=== PATIENT | male | born 1965 | race African-American/Black ===

== ENCOUNTER 2023-03-31 14:43 | Outpatient (AMB) | payer BC, SELFPAY ==
--- NOTE | 2023-03-31 14:51 | HO.NEPHOV ---
HPI HPI Comments History of Present Illness Details Middle-aged man with a longstanding history of resistant hypertension. He has been on multiple medications. At present blood pressure seems well controlled. He has elevated serum creatinine in the range of 1.4-1.6 mg/dL. 24 hour urine collection done in August 2021 revealed a creatinine clearance of 75 mL/minutes with a serum creatinine of 1.5 mg/dL. He has increased muscle mass which could explain some degree of elevation serum creatinine. Nevertheless he does have mild CKD. [facility] Surgical History No pertinent past surgical history Family History Mother Hypertension Social History Household Members Other:: Sister Housing: House Alcohol intake: never Patient Tobacco Use Status: Never used Tobacco Use of substances other than those prescribed or required for medical reasons: No Vital Signs 03/31/23 14:52 Height 5 ft 9 in Weight 217 lb 2 oz BMI 32.1 BP 126/84 Blood Pressure Location Lt brachial Position Sitting Pulse 71 Pulse Source Pulse Oximeter Pulse Oximetry (%) 97 Oxygen Delivery Method Room Air Physical Exam Vital Signs: Last Vital Signs Pulse 71 03/31/23 14:52 BP 126/84 03/31/23 14:52 Pulse Ox 97 03/31/23 14:52 Oxygen Delivery Method Room Air 03/31/23 14:52 BMI result Body Mass Index 32.1 Const General: comfortable; No acute distress Orientation/consciousness: patient oriented x3 Eyes General: appearance normal, both eyes and all related structures Visual Nicholas: normal visual nicholas by confrontation Neck Neck: Yes supple and Yes no JVD Resp Effort & Inspection: normal respiratory effort and respiratory effort not decreased Auscultation: rhonchi Cardio Palpation: no palpable S3 and no palpable S4 Heart sounds: no rubs GI Inspection: Yes normal to inspection Palpation (GI): Soft to palpation Percussion: Yes normal to percussion Auscultation: normal bowel sounds General: Yes no CVA tenderness Back/Spine/Pelvis Back: no CVA tenderness Skin General skin exam: no petechiae and no purpura Neuro General: patient oriented x3 and no focal motor deficits Extrem General: No clubbing and No edema Assessment & Plan Assessment & Plan (1) HTN (hypertension): Code(s): I10 - Essential (primary) hypertension Plan Middle-aged man with resistant hypertension. Blood pressure is well controlled. We discussed low-salt diet and weight loss. Increase p.o. fluid intake. Continue monitor blood pressure periodically. No change in antihypertensive regimen today. Elevated serum creatinine. This is due to the combination of increased muscle mass as well as mild CKD. 24 hour urine collection revealed a creatinine clearance of 75 mL/minute back in August 2021. At that time serum creatinine was 1.6 mg/dL. Continue to monitor renal function closely Avoid nephrotoxic agents including NSAIDs. Orders: Orders Blood Urea Nitrogen Today I10 - Essential (primary) hypertension Calcium Today I10 - Essential (primary) hypertension Electrolytes Today I10 - Essential (primary) hypertension Creatinine Today I10 - Essential (primary) hypertension Coding Level of Care Code Est Pt Level 3 (55698) Diagnoses HTN (hypertension) I10 Results Reviewed Results Reviewed: Labs from August 2021 was reviewed reviewed serum creatinine 1.55 electrolytes normal Nephrology Results: No Data to Display
[2023-03-31 14:52] VITALS: BP 126/84; PULSE 71; O2SAT 97; BMI 32.1
== END 2023-03-31 15:19 | disposition home or self-care (01) ==
PROVIDERS: PCP Internal Medicine; Visit Provider Internal Medicine Hypertension Specialist
DX: I10 Essential (primary) hypertension (principal)
CPT/HCPCS: 99213

== ENCOUNTER → 2023-03-31 14:43 | Outpatient (BNVA) | payer BC, SELFPAY | PROVIDERS: PCP Internal Medicine; Visit Provider Internal Medicine Hypertension Specialist ==

== ENCOUNTER 2023-10-06 15:08 | Outpatient (AMB) | payer BC, SELFPAY ==
[2023-10-06 15:04] VITALS: BP 114/78; PULSE 95; O2SAT 98; BMI 31.6
--- NOTE | 2023-10-06 15:04 | HO.NEPHOV ---
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 He has been on multiple medications. At present blood pressure seems well controlled. He has elevated serum creatinine in the range of 1.4-1.6 mg/dL. 24 hour urine collection done in August 2021 revealed a creatinine clearance of 75 mL/minutes with a serum creatinine of 1.5 mg/dL. He has increased muscle mass which could explain some degree of elevation serum creatinine. Nevertheless he does have mild CKD. 10/06/23 Recently had elevated PSA underwent MRI and prostate biopsy Being followed closely by Urology [facility] Surgical History No pertinent past surgical history Family History Mother Hypertension Social History Household Members Other:: Sister Housing: House Alcohol intake: never Patient Tobacco Use Status: Never used Tobacco Physical Exam Vital Signs: Last Vital Signs Pulse 95 10/06/23 15:04 BP 114/78 10/06/23 15:04 Pulse Ox 98 10/06/23 15:04 Oxygen Delivery Method Room Air 10/06/23 15:04 BMI result Body Mass Index 31.6 Const General: comfortable; No acute distress Orientation/consciousness: patient oriented x3 Eyes General: appearance normal, both eyes and all related structures Visual Robertson: normal visual robertson by confrontation Neck Neck: Yes supple and Yes no JVD Resp Effort & Inspection: normal respiratory effort and respiratory effort not decreased Auscultation: rhonchi Cardio Palpation: no palpable S3 and no palpable S4 Heart sounds: no rubs GI Inspection: Yes normal to inspection Palpation (GI): Soft to palpation Percussion: Yes normal to percussion Auscultation: normal bowel sounds General: Yes no CVA tenderness Back/Spine/Pelvis Back: no CVA tenderness Skin General skin exam: no petechiae and no purpura Neuro General: patient oriented x3 and no focal motor deficits Extrem General: No clubbing and No edema Results Reviewed Nephrology Results: No Data to Display Assessment & Plan Assessment & Plan (1) HTN (hypertension): Code(s): I10 - Essential (primary) hypertension Category: Medical Plan Middle-aged man with resistant hypertension. Blood pressure is well controlled. We discussed low-salt diet and weight loss. Increase p.o. fluid intake. Continue monitor blood pressure periodically. No change in antihypertensive regimen today. Elevated serum creatinine. This is due to the combination of increased muscle mass as well as mild CKD. 24 hour urine collection revealed a creatinine clearance of 75 mL/minute back in August 2021. At that time serum creatinine was 1.6 mg/dL. Continue to monitor renal function closely Check 24 hr urine for Cr CL in Feb 2024 Avoid nephrotoxic agents including NSAIDs. Orders: Orders Comprehensive Met. Panel 5 Months I10 - Essential (primary) hypertension Complete Blood Count no Diff 5 Months I10 - Essential (primary) hypertension Creatinine, 24 Hr Group 5 Months I10 - Essential (primary) hypertension Creatinine Clearance Urine 24U 5 Months I10 - Essential (primary) hypertension Medications: New labetalol 200 mg PO BID 180 tabs 3RF Coding Level of Care Code Est Pt Level 4 (28053) Diagnoses HTN (hypertension) I10
== END 2023-10-06 15:28 | disposition home or self-care (01) ==
PROVIDERS: PCP Internal Medicine; Visit Provider Internal Medicine Hypertension Specialist
DX: I10 Essential (primary) hypertension (principal)
CPT/HCPCS: 99214

== ENCOUNTER → 2023-10-06 15:08 | Outpatient (BNVA) | payer BC, SELFPAY | PROVIDERS: PCP Internal Medicine; Visit Provider Internal Medicine Hypertension Specialist ==

== ENCOUNTER 2024-03-08 14:09 | Outpatient (AMB) | payer BC, SELFPAY ==
--- NOTE | 2024-03-08 14:10 | HO.NEPHOV ---
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 He has been on multiple medications. At present blood pressure seems well controlled. He has elevated serum creatinine in the range of 1.4-1.6 mg/dL. 24 hour urine collection done in August 2021 revealed a creatinine clearance of 75 mL/minutes with a serum creatinine of 1.5 mg/dL. He has increased muscle mass which could explain some degree of elevation serum creatinine. Nevertheless he does have mild CKD. 10/06/23 Recently had elevated PSA underwent MRI and prostate biopsy Being followed closely by Urology [facility] Surgical History No pertinent past surgical history Family History Mother Hypertension Social History Household Members Other:: Sister Housing: House Alcohol intake: never Patient Tobacco Use Status: Never used Tobacco Physical Exam Vital Signs: Last Vital Signs Pulse 82 03/08/24 14:11 BP 122/78 03/08/24 14:11 Pulse Ox 98 03/08/24 14:11 Oxygen Delivery Method Room Air 03/08/24 14:11 Const General: comfortable; No acute distress Orientation/consciousness: patient oriented x3 Eyes General: appearance normal, both eyes and all related structures Visual Robertson: normal visual robertson by confrontation Neck Neck: Yes supple and Yes no JVD Resp Effort & Inspection: normal respiratory effort and respiratory effort not decreased Auscultation: rhonchi Cardio Palpation: no palpable S3 and no palpable S4 Heart sounds: no rubs GI Inspection: Yes normal to inspection Palpation (GI): Soft to palpation Percussion: Yes normal to percussion Auscultation: normal bowel sounds General: Yes no CVA tenderness Back/Spine/Pelvis Back: no CVA tenderness Skin General skin exam: no petechiae and no purpura Neuro General: patient oriented x3 and no focal motor deficits Extrem General: No clubbing and No edema Results Reviewed Nephrology Results: No Data to Display Assessment & Plan Assessment & Plan (1) HTN (hypertension): Code(s): I10 - Essential (primary) hypertension Category: Medical Plan Middle-aged man with resistant hypertension. Blood pressure is well controlled. We discussed low-salt diet and weight loss. Increase p.o. fluid intake. Continue monitor blood pressure periodically. No change in antihypertensive regimen today. Elevated serum creatinine. This is due to the combination of increased muscle mass as well as mild CKD. 24 hour urine collection revealed a creatinine clearance of 75 mL/minute back in August 2021. At that time serum creatinine was 1.6 mg/dL. Continue to monitor renal function closely Repeat 24 hr urine for Cr CL is pending Avoid nephrotoxic agents including NSAIDs. Orders: Orders Basic Metabolic Panel 6 Months I10 - Essential (primary) hypertension Coding Level of Care Code Est Pt Level 4 (98133) Diagnoses HTN (hypertension) I10
[2024-03-08 14:11] VITALS: BP 122/78; PULSE 82; O2SAT 98
== END 2024-03-08 14:35 | disposition home or self-care (01) ==
PROVIDERS: PCP Internal Medicine; Visit Provider Internal Medicine Hypertension Specialist
DX: I1A.0 Resistant hypertension (principal)
CPT/HCPCS: 99214

== ENCOUNTER 2024-04-20 11:23 | Outpatient (AMB) | payer BC, SELFPAY ==
--- NOTE | 2024-04-20 11:20 | HO.NEPHOV ---
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 He has been on multiple medications. At present blood pressure seems well controlled. He has elevated serum creatinine in the range of 1.4-1.6 mg/dL. 24 hour urine collection done in August 2021 revealed a creatinine clearance of 75 mL/minutes with a serum creatinine of 1.5 mg/dL. He has increased muscle mass which could explain some degree of elevation serum creatinine. Nevertheless he does have mild CKD. 10/06/23 Recently had elevated PSA underwent MRI and prostate biopsy Being followed closely by Urology [facility] Surgical History No pertinent past surgical history Family History Mother Hypertension Social History Household Members Other:: Sister Housing: House Alcohol intake: never Patient Tobacco Use Status: Never used Tobacco Physical Exam Vital Signs: BMI result Body Mass Index 31.3 Comfortable Neck supple no JVD. Lungs entry equal no rales. Heart S1-S2 heard no gallop or rub. Abdomen soft nontender. Neuro alert awake oriented. No asterixis. Extremities no edema. Telehealth Telehealth Telehealth Platform: Telephone Location of provider rendering services: practice address Location of patient: address on file Patient informed of any privacy concerns related to visit: Yes Results Reviewed Results Reviewed: Labs from August 2021 was reviewed reviewed serum creatinine 1.55 electrolytes normal Nephrology Results: No Data to Display Assessment & Plan Assessment & Plan (1) HTN (hypertension): Code(s): I10 - Essential (primary) hypertension Category: Medical Plan Middle-aged man with resistant hypertension. Blood pressure is well controlled. We discussed low-salt diet and weight loss. Increase p.o. fluid intake. Continue monitor blood pressure periodically. No change in antihypertensive regimen today. Elevated serum creatinine. This is due to the combination of increased muscle mass as well as mild CKD. 24 hour urine collection revealed a creatinine clearance of 75 mL/minute back in August 2021. At that time serum creatinine was 1.6 mg/dL. Continue to monitor renal function closely Avoid nephrotoxic agents including NSAIDs. 04/20/2024. Discussed results of 24 urine collection. The serum creatinine was 1.65. Creatinine clearance was reported as 53 mL/minute in fact the corrected creatinine clearance is 65 mL/minute. Coding Level of Care Code Tele Est Pt Level 2 (07015) Diagnoses HTN (hypertension) I10
[2024-04-20 11:21] VITALS: BMI 31.3
--- OUTSIDE RECORDS SUMMARY | 2024-04-20 11:24 | XMS_ITS ---
[facility] Name [facility] Organization Unknown History of Medication Use Medication Directions Dispensed Refills Start Date End Date Stat atorvastatin (LIPITOR) 20 MG tablet Take 1 tablet (20 mg total) by mouth daily. 03/09/2024 04/25/9999 active sodium chloride 0.9% (NS) infusion 125 mL/hr, Intravenous, Continuous, Starting on Wed12/29/23 at 1030, Pre-Procedure (GI) 01/02/2024 active levoFLOXacin (LEVAQUIN) 500 MG tablet Take 1 tablet (500 mg total) by mouth daily. 08/22/2023 active phenazopyridine (PYRIDIUM) 100 MG tablet Take 1 tablet (100 mg total) by mouth 3 (three) times a day in the morning, mid-day and early evening. 08/20/2023 active amLODIPine (NORVASC) 10 MG tablet 1 tablet (10 mg total). 1/2 tabet qhs 03/04/2022 active labetalol (NORMODYNE) 200 MG tablet Take 1 tablet (200 mg total) by mouth 2 (two) times a day. 03/04/2022 active atorvastatin (LIPITOR) 10 MG tablet Take 1 tablet (10 mg total) by mouth daily. 03/04/2022 active spironolactone-hydroch lorothiazide (ALDACTAZIDE) 25-25 MG per tablet Take 1 tablet by mouth daily. 03/04/2022 active valsartan (DIOVAN) 160 MG tablet Take 160 mg by mouth daily. 03/04/2022 active Problems Problem Status Onset Date Problem Type Date of Resoluti on Source FH: colon polyps active 2023-10-21 ProblemAct [facility] Hypokalemia active 2020-06-13 ProblemAct [facility] Other and unspecified hyperlipidemia active 2013-07-14 ProblemAct [facility] Familial multiple lipoprotein-type hyperlipidemia active 2013-07-14 ProblemAct [facility] Benign essential hypertension active 2013-07-14 ProblemAct [facility] FHx: colon cancer active 2023-10-21 ProblemAct [facility] Myopia active 2013-07-14 Problem[facility] Stage 3a chronic kidney disease active 2023-06-18 ProblemAct [facility] 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 ProblemAct [facility] Iron deficiency anemia active 2023-10-21 ProblemAct [facility] Chronic kidney disease, stage II (mild) active 2013-07-14 ProblemAct [facility] Prostate cancer active 2023-08-31 ProblemAct [facility] Immunizations Vaccine Date Source Lot Number Status Influenza, Unspecified 02/11/2021 [facility] [id number] co mpleted Influenza, Quadrivalent (FLU ARIX, AFLURIA, FLULAVAL, FLUZONE) Preservative Free IM 02/12/2022 [facility] [id number] completed Influenza, Quadrivalent (FLU CELVAX) MDCK, Preservative Free IM 02/21/2023 [facility] [id number] completed Tdap 12/01/2022 [facility] [id number] completed Zoster Vaccine Recombinant (Shingrix) 12/18/2022 [facility] [id number] completed Tdap 05/11/2011 [facility] [id number] completed Zoster Vaccine Recombinant (Shingrix) 09/15/2022 [facility] [id number] completed Influenza (AFLURIA/FLUZONE) Inactivated/Split Quadrivalent with Preservative IM 04/27/2011 [facility] [id number] completed Influenza, Quadrivalent (FLU CELVAX) MDCK, Preservative Free IM 02/11/2021 [facility] [id number] completed Influenza (AFLURIA/FLUZONE) Inactivated/Split Quadrivalent with Preservative IM 02/21/2009 [facility] [id number] completed Influenza, Unspecified 01/28/2020 [facility] [id number] completed Influenza, Unspecified 02/09/2019 [facility] co mpleted Influenza Inactivated/Split Preservative Free IM 03/09/2012 [facility] [id number] completed Influenza Inactivated/Split Preservative Free IM 02/09/2019 [facility] completed Influenza (AFLURIA/FLUZONE) Inactivated/Split Quadrivalent with Preservative IM 01/31/2010 [facility] [id number] completed Influenza, Quadrivalent (FLU CELVAX) MDCK, Preservative Free IM 01/28/2020 [facility] [id number] completed Influenza Inactivated/Split Preservative Free IM 02/03/2016 [facility] [id number] completed
== END 2024-04-20 13:18 | disposition home or self-care (01) ==
PROVIDERS: PCP Internal Medicine; Visit Provider Internal Medicine Hypertension Specialist
DX: I1A.0 Resistant hypertension (principal)
CPT/HCPCS: 99441

== ENCOUNTER 2024-09-06 16:13 | Outpatient (AMB) | payer BC, SELFPAY ==
--- NOTE | 2024-09-06 16:16 | HO.NEPHOV_ITS ---
Vital Signs 09/06/24 16:17 Height 5 ft 9 in Weight 211 lb BMI 31.2 BP 130/78 Blood Pressure Location Rt brachial Position Sitting Pulse 100 Pulse Source Pulse Oximeter Pulse Oximetry (%) 97 Oxygen Delivery Method Room Air Intake Visit Reasons: 6 Month FU HTN/ Conf Pipeline Dispatch Operator Required: No Accompanied by: Self / Same As Patient Allergies No Known Allergies Allergy (Verified 09/06/24 16:19) Medication List - Last Reconciled 09/06/24 by Yuan Limon MD amlodipine 10 mg PO DAILY labetalol 200 mg PO BID spironolacton-hydrochlorothiaz 25-25 mg 1 tab PO DAILY HPI Comments Details: Middle-aged man with a longstanding history of resistant hypertension. He has been on multiple medications. At present blood pressure seems well controlled. He has elevated serum creatinine in the range of 1.4-1.6 mg/dL. 24 hour urine collection done in August 2021 revealed a creatinine clearance of 75 mL/minutes with a serum creatinine of 1.5 mg/dL. He has increased muscle mass which could explain some degree of elevation serum creatinine. Nevertheless he does have mild CKD. 10/06/23 ;Recently had elevated PSA ;underwent MRI and prostate biopsy ;Being followed closely by Urology 09/06/24 59-year-old male presenting for a wellness visit and review of medications. He is currently on a stable regimen of amlodipine, libidol, and alberto nolactone/aldactazide, with no medication changes in the past six months. The patient denies any new symptoms including respiratory issues, leg swelling, or urination problems. A recent prostate MRI and biopsy in June showed no evidence of cancer. The patient monitors his blood pressure at home, with values consistently in the 120s/75-80 mmHg, and is asymptomatic concerning hypotension. Blood tests were conducted recently, but results have been delayed in reaching our office from [facility] Surgical History No pertinent past surgical history Family History Mother Hypertension Social History Household Members Other:: Sister Housing: House Alcohol intake: never Patient Tobacco Use Status: Never used Tobacco Physical Exam Vital Signs: Last Vital Signs Pulse 100 09/06/24 16:17 BP 130/78 09/06/24 16:17 Pulse Ox 97 09/06/24 16:17 Oxygen Delivery Method Room Air 09/06/24 16:17 BMI result Body Mass Index 31.2 Comfortable Neck supple no JVD. Lungs entry equal no rales. Heart S1-S2 heard no gallop or rub. Abdomen soft nontender. Neuro alert awake oriented. No asterixis. Extremities no edema. Results Reviewed Results Reviewed: 09/02/24 Cr 1.46 eGFR 54 ml/mt Nephrology Results: No Data to Display Assessment & Plan Assessment & Plan (1) HTN (hypertension): Code(s): I10 - Essential (primary) hypertension Category: Medical Plan Middle-aged man with resistant hypertension. Blood pressure is well controlled. We discussed low-salt diet and weight loss. Continue to increase p.o. fluid intake. Continue monitor blood pressure periodically. No change in antihypertensive regimen today. Elevated serum creatinine at baseline. This is due to the combination of increased muscle mass as well as mild CKD. 24 hour urine collection revealed a creatinine clearance of 75 mL/minute back in August 2021. At that time serum creatinine was 1.6 mg/dL. Continue to monitor renal function closely Avoid nephrotoxic agents including NSAIDs. Repeated 24 urine collection. The serum creatinine was 1.65. Creatinine clearance was reported as 53 mL/minute in fact the corrected creatinine clearance is 65 mL/minute. Recent Cr is 1.46 - at baseline No changes were made today Orders: Orders Basic Metabolic Panel 6 Months I10 - Essential (primary) hypertension Total Protein Urine Random Today I10 - Essential (primary) hypertension UA and rflx microscopic Today I10 - Essential (primary) hypertension Creatinine Urine Today I10 - Essential (primary) hypertension Coding Level of Care Code Est Pt Level 4 (96306) Diagnoses HTN (hypertension) I10
--- OUTSIDE RECORDS SUMMARY | 2024-09-06 16:16 | XMS_ITS | Encounter Summary ---
Author Organization [facility] Address [address] [place] [id number] Care Team Providers Care Trading Analyst Name Role Phone Dodie Rodriguez MD Primary Care Provider [phone] Dodie Rodriguez MD Unavailable [phone] Encounter Details Date Type Department Care Team (Late st Contact Info) Description 09/25/2022 Scanned Document [facility] Ophthalmology, Scan Social History Tobacco Use Types Packs/Day Years Used Date Smoking Tobacco: Never Smokeless Tobacco: Never Alcohol Use Standard Drinks/Week Comments No 0 (1 standard drink = 0.6 oz pur e alcohol) PHQ-2 Answer Date Recorded PHQ-2 Total Score 0 08/08/2021 Sex and Gender Information Value Date Recorded Sex Assigned at Male 08/16/2023 9:58 AM EDT Legal Sex Male 3:18 PM EDT Gender Identity Male 09/08/2022 11:01 PM EDT Sexual Orientation Heterosexual (straight) 08/15 9:58 AM EDT COVID-19 Exposure Response Date Recorded In the last 10 days, have yo u been in contact with someone who was confirmed or suspected to have Coronavirus/COVID-19? No / Unsure 09/15/2022 11:07 AM EDT documented as of this encounter Plan of Treatment Upcoming Encounters Date Type Department Care Team (Late st Contact Info) Description 12/05/2024 9:00 AM EDT Office Visit [address] [place] [phone] Dodie Rodriguez MD [address] [place] [address] 02/09/2025 8:30 AM EDT Office Visit [id number] [address] [facility] [address] [place] [phone] Keyshawn Wetzel MD [address] [place] [id number] documented as of this encounter Visit Diagnoses Not on filedocumented in this encounter Care Teams Trading Analyst Relationship Specialty Start Date End Date Dodie Rodriguez MD [address] [place] [address] PCP - General Internal Medicine 03/16/17 Dodie Rodriguez MD [address] [place] [address] PCP - [place] Commercial Attributed 11/25/19 04/25/23 documented as of this encounter
--- OUTSIDE RECORDS SUMMARY | 2024-09-06 16:16 | XMS_ITS | Encounter Summary ---
Author Organization [facility] Address [address] [place] [address] Care Team Providers Care Manager Balance Name Role Phone Dodie Rodriguez MD Primary Care Provider [phone] Dodie Rodriguez MD Unavailable [phone] Encounter Details Date Type Department Care Team (Late st Contact Info) Description 09/17/2021 Scanned Document [facility] Dodie Rodriguez MD [address] [facility] [address] [place], [place] [phone] Social History Tobacco Use Types Packs/Day Years [...] Orientation Heterosexual (straight) 08/15 9:58 AM EDT documented as of this encounter Plan of Treatment Upcoming Encounters Date Type Department Care Team (Late st Contact Info) Description 12/05/2024 9:00 AM EDT Office Visit [facility] [address] [facility] [address] [place] [phone] Dodie Rodriguez MD [address] [place] [address] 02/09/2025 8:30 AM EDT Office Visit [id number] [address] [facility] [address] [place] [phone] Keyshawn Wetzel MD [address] [place] [phone] documented as of this encounter Visit Diagnoses Not on filedocumented in this encounter Care Teams Manager Balance Relationship Specialty Start Date End Date Dodie Rodriguez MD [address] [place] [address] PCP - General Internal Medicine 03/16/17 Dodie Rodriguez MD [address] [place] [address] PCP - [place] Commercial Attributed 11/25/19 04/25/23 documented as of this encounter
--- OUTSIDE RECORDS SUMMARY | 2024-09-06 16:16 | XMS_ITS | Encounter Summary ---
Author Organization [facility] Address [address] [place] [id number] Care Team Providers Care Safety Intern Name Role Phone Mike, Ha Pham MD Primary Care Provider [phone] Dodie Rodriguez MD Primary Care Provider + [phone] Dodie Rodriguez MD Unavailable [phone] Encounter Details Date Type Department Care Team (Late st Contact Info) Description 08/06/2015 Scanned Document [address] [phone] Provider, Generic Social History Tobacco Use Types Packs/Day Years Used Date Smoking Tobacco: Never Smokeless Tobacco: Never Alcohol Use Standard Drinks/Week Comments No 0 (1 standard drink = 0.6 oz pur e alcohol) Sex and Gender Information Value Date Recorded Sex Assigned at Male 08/16/2023 9:58 AM EDT Legal Sex Male 3:18 PM EDT Gender Identity Male 09/08/2022 11:01 PM EDT Sexual Orientation Heterosexual (straight) 08/15 9:58 AM EDT documented as of this encounter Plan of Treatment Upcoming Encounters Date Type Department Care Team (Late st Contact Info) Description 12/05/2024 9:00 AM EDT Office Visit [address] [phone] Dodie Rodriguez MD [address] [place] [address] [place] [address] 02/09/2025 8:30 AM EDT Office Visit [id number] [address] [facility] [address] [place] [phone] Keyshawn Wetzel MD [address] [address] documented as of this encounter Procedures Procedure Name Priority Date/Time Associated Diagnosis Comments BLOOD PRESSURE MONITOR HX 08/27/2015 BLOOD PRESSURE MONITOR HX 08/06/2015 documented in this encounter Results * BLOOD PRESSURE MONITOR HX (08/27/2015) Narrative 08/27/2015 Ordered by an unspecified provider. us Generic Provider HX AMB PROCEDURES Edited Result - Final * BLOOD PRESSURE MONITOR HX (08/06/2015) Narrative 08/06/2015 Ordered by an unspecified provider. us Generic Provider HX AMB PROCEDURES Edited Result - Final documented in this encounter Visit Diagnoses Not on filedocumented in this encounter Care Teams Safety Intern Relationship Specialty Start Date End Date Ha Mckeon MD PCP - General Internal Medicine 01/03/15 03/15/17 Dodie Rodriguez MD [address] [place] [address] PCP - General Internal Medicine 03/16/17 Dodie Rodriguez MD [address] [place] [address] PCP - [place] Commercial Attributed 11/25/19 04/25/23 documented as of this encounter
--- OUTSIDE RECORDS SUMMARY | 2024-09-06 16:16 | XMS_ITS | Encounter Summary ---
Author Organization [facility] Address [address] [place] [address] Phone Care Team Providers Care Costume Director Name Role Phone Dodie Rodriguez MD Primary Care Provider [phone] Encounter Details Date Type Department Care Team (Late st Contact Info) Description 08/18/2021 Telephone [facility] [address] [place] [address] Yuan Limon MD Social History Tobacco Use Types Packs/Day Years Used Date Smoking Tobacco: Never Smokeless Tobacco: Never Alcohol Use Standard Drinks/Week Comments Yes 0 (1 standard drink = 0.6 oz pure alcohol) Alcoholic Drinks/day: Occasional social drink Sex and Gender Information Value Date Recorded Sex Assigned at Not on file Legal Sex Male 4:59 PM EST Gender Identity Not on file Sexual Orientation Not on file documented as of this encounter Miscellaneous Notes * Telephone Encounter - Susan Gr MA - 08/20/2021 3:07 PM EDT Sent lab slip for Renal panel. * Telephone Encounter - Sol Moon - 08/18/2021 4:03 PM EDT Pt called, he needs a new lab order for his appt on 09/02/[address] Limon. Please mail Thank you documented in this encounter Plan of Treatment Not on file documented as of this encounter Visit Diagnoses Not on filedocumented in this encounter Care Teams Costume Director Relationship Specialty Start Date End Date Dodie Rodriguez MD [address] [place] [phone] PCP - General Internal Medicine 09/02/21 documented as of this encounter
--- OUTSIDE RECORDS SUMMARY | 2024-09-06 16:16 | XMS_ITS | Encounter Summary ---
Author Organization [facility] Address [address] [place] [address] Care Team Providers Care Antisubmarine Weapons Officer Name Role Phone Dodie Rodriguez MD Primary Care Provider [phone] Dodie Rodriguez MD Unavailable [phone] Encounter Details Date Type Department Care Team (Late st Contact Info) Description 02/02/2023 Telephone [facility] [address] [place] [phone] Keyshawn Wetzel MD [address] [place] [address] Social History Tobacco Use Types Packs/Day Years [...] AM EDT documented as of this encounter Miscellaneous Notes * Telephone Encounter - Muriel Rian - 02/03/2023 8:46 AM EDT All set documented in this encounter Plan of Treatment Upcoming Encounters Date Type Department Care Team (Late st Contact Info) Description 12/05/2024 9:00 AM EDT Office Visit [facility] [place] [address] [place] [address] Dodie Rodriguez MD [address] [place] [address] 02/09/2025 8:30 AM EDT Office Visit [facility] [id number] 7 [facility] [address] [place] [phone] Keyshawn Wetzel MD [address] [place] [phone] documented as of this encounter Visit Diagnoses Not on filedocumented in this encounter Care Teams Antisubmarine Weapons Officer Relationship Specialty Start Date End Date Dodie Rodriguez MD [address] [facility] [address] [place] [address] PCP - General Internal Medicine 03/16/17 Dodie Rodriguez MD [address] [facility] [address] [place] [address] PCP - [place] [employer] Attributed 11/25/19 04/25/23 documented as of this encounter
--- OUTSIDE RECORDS SUMMARY | 2024-09-06 16:16 | XMS_ITS | Encounter Summary ---
Author Organization [facility] Address [address] [place] [address] Care Team Providers Care Insulation Cutter Name Role Phone Dodie Rodriguez MD Primary Care Provider [phone] Dodie Rodriguez MD Unavailable [phone] Encounter Details Date Type Department Care Team (Late st Contact Info) Description 08/28/[address] [address] Dodie Rodriguez MD 100 [facility] [address] [place] [address] Social History Tobacco Use Types Packs/Day Years [...] encounter Miscellaneous Notes * Telephone Encounter - Adelaida Dasilva RN - 08/28/2022 11:27 AM EDT Patient will call back when he has the information in front of him on Wednesday * Telephone Encounter - Katie Soler - 08/28/2022 11:03 AM EDT Pt is asking for a call back about the shingles vaccine. He has questions about it before making anappt. He stated the best day to call is Wednesday or . documented in this encounter Plan of Treatment Upcoming Encounters Date Type Department Care Team (Late st Contact Info) Description 12/05/2024 9:00 AM EDT Office Visit [facility] [address] [address] Dodie Rodriguez MD [address] [place] [address] 02/09/2025 8:30 AM EDT Office Visit [facility] [address] [place] [phone] Keyshawn Wetzel MD [address] [place] [address] documented as of this encounter Visit Diagnoses Not on filedocumented in this encounter Care Teams Insulation Cutter Relationship Specialty Start Date End Date Dodie Rodriguez MD [address] [place] [address] PCP - General Internal Medicine 03/16/17 Dodie Rodriguez MD [address] [place] [address] PCP - [place] [employer] Attributed 11/25/19 04/25/23 documented as of this encounter
--- OUTSIDE RECORDS SUMMARY | 2024-09-06 16:16 | XMS_ITS | Encounter Summary ---
Author Organization [facility] Address [address] [place] [address] Care Team Providers Care Candy Bar Attendant Name Role Phone Dodie Rodriguez MD Primary Care Provider [phone] Encounter Details Date Type Department Care Team (Late st Contact Info) Description 10/26/2023 Scanned Document [facility] [address] [place] [address] Ophthalmology, Scan Social History Tobacco Use Types [...] Description 12/05/2024 9:00 AM EDT Office Visit [address] [place] [phone] Dodie Rodriguez MD [address] [place] [address] [address] [place] [address] 02/09/2025 8:30 AM EDT Office Visit [facility] [id number] 7 [facility] [address] [place] [address] Keyshawn Wetzel MD [address] [place] [phone] documented as of this encounter Visit Diagnoses Not on filedocumented in this encounter Care Teams Candy Bar Attendant Relationship Specialty Start Date End Date Dodie Rodriguez MD [address] [place] [address] PCP - General Internal Medicine 03/16/17 documented as of this encounter
--- OUTSIDE RECORDS SUMMARY | 2024-09-06 16:16 | XMS_ITS | Clinical Summary ---
Author Organization [facility] it Address [address] [place] [address] Care Team Providers Care Human Resources Hr Generalist Name Role Phone Unavailable Primary Care Provider Unavailabl e Social History Tobacco Use Types Packs/Day Years Used Date Smoking Tobacco: Never Assessed Sex and Gender Information Value Date Recorded Sex Assigned at Not on file Legal Sex Male 9:40 AM EST Gender Identity Not on file Sexual Orientation Not on file Plan of Treatment Health Maintenance Due Date Last Done Comments DTaP,Tdap,and Td Vaccines (1 - Tdap) 1982 Pneumococcal Vaccine: 50+ Years (1 of 1 - PCV) 2013 Zoster Vaccines (1 of 2) 2013 Colorectal Cancer Screening: Colonoscopy 03/29/2022 Depression Screening 03/29/2022 HIV Screening 03/29/2022 Hepatitis C Screening 03/29/2022 Social Influencers of Health Screening 03/29/2022 COVID-19 Vaccine ( - 2023-2 5 season) 2023 Influenza Vaccine (Season Ended) 2024 Cholesterol Screening (Lipid Panel) 09/04/2026 09/04/2021, 02/05/2018 RSV Immunization Adult Patients (1 - 1-dose 75+ series) 2038 HIB Vaccines Aged Out No longer eligi ble based on patient's age to complete this topic HPV Vaccines Aged Out No longer eligi ble based on patient's age to complete this topic Hepatitis A Vaccines Aged Out No long er eligible based on patient's age to complete this topic Hepatitis B Vaccines Aged Out No long er eligible based on patient's age to complete this topic IPV Vaccines Aged Out No longer eligi ble based on patient's age to complete this topic MMR Vaccines Aged Out No longer eligi ble based on patient's age to complete this topic Meningococcal ACWY Vaccine Aged Out N o longer eligible based on patient's age to complete this topic Meningococcal B Vaccine Aged Out No l onger eligible based on patient's age to complete this topic Pneumococcal Vaccine: Pediatrics (0 to 5 Years) and At-Risk Patients (6 to 64 Years) Aged Out No longer eligible b ased on patient's age to complete this topic RSV Immunization Patients Under 20 months Aged Out No longer eligible b ased on patient's age to complete this topic Varicella Vaccines Aged Out No longer eligible based on patient's age to complete this topic
--- OUTSIDE RECORDS SUMMARY | 2024-09-06 16:16 | XMS_ITS | Encounter Summary ---
Author Organization [facility] Address [address] [place] [address] Care Team Providers Care Siding Stapler Name Role Phone Dodie Rodriguez MD Primary Care Provider [phone] Dodie Rodriguez MD Unavailable [phone] Reason for Visit * Reason Comments Advice Only Encounter Details Date Type Department Care Team (Late st Contact Info) Description 09/07/2022 Telephone [facility] [address] [place] [phone] Dodie Rodriguez MD [address] [place], [place] [phone] Advice Only Social History Tobacco Use Types Packs/Day Years [...] encounter Miscellaneous Notes * Telephone Encounter - Nereyda Burgess LPN - 09/09/2022 1:20 PM EDT Pt sent Emair message with other questions. Being addressed in NeedFeedhart. * Telephone Encounter - Dodie Rodriguez MD - 09/07/2022 3:20 PM EDT Agree with below. He can also go to [facility] website for further vaccine information. * Telephone Encounter - Nereyda Burgess LPN - 09/07/2022 2:18 PM EDT T/c to pt: Pt wants to know of the serious reactions to the shingrix vaccine what comorbidities did pt's have that could have caused them to have these reactions such as anaphylaxis and so on. Pt is not on Emair at this time but a link was emailed to him and he is going to sign up and senda Emair message with further details of his questions. I advised pt of possibility of low grade temperature, feeling malaise, increased fatigue, injectionsite tenderness/soreness. Pt is looking for further details before he gets the vaccine. documented in this encounter Plan of Treatment Upcoming Encounters Date Type Department Care Team (Late st Contact Info) Description 12/05/2024 9:00 AM EDT Office Visit [facility] 100 [facility] [address] [place] [phone] Dodie Rodriguez MD 100 [facility] [address] [place], [place] [phone] 02/09/2025 8:30 AM EDT Office Visit [facility] [id number] 7 [facility] [address] [place] [phone] Keyshawn Wetzel MD [address] [place], [place] [phone] documented as of this encounter Visit Diagnoses Not on filedocumented in this encounter Care Teams Siding Stapler Relationship Specialty Start Date End Date Dodie Rodriguez MD [address] [place] [address] PCP - General Internal Medicine 03/16/17 Dodie Rodriguez MD [address] [place] [address] PCP - [place] [employer] Attributed 11/25/19 04/25/23 documented as of this encounter
--- OUTSIDE RECORDS SUMMARY | 2024-09-06 16:16 | XMS_ITS | Encounter Summary ---
Author Organization [facility] Address [address] [place] [address] Care Team Providers Care Administrative Personal Assistant Name Role Phone Dodie Rodriguez MD Primary Care Provider [phone]- [phone] Dodie Rodriguez MD Unavailable [phone] Encounter Details Date Type Department Care Team (Late st Contact Info) Description 08/30/2017 Scanned Document [address] [phone] Provider, Generic Social History Tobacco [...] Description 12/05/2024 9:00 AM EDT Office Visit [address] [phone] Dodie Rodriguez MD [address] [place] [phone] 02/09/2025 8:30 AM EDT Office Visit [facility] [id number] 7 [facility] [address] [place] [phone] Keyshawn Wetzel MD [address] [address] documented as of this encounter Visit Diagnoses Not on filedocumented in this encounter Care Teams Administrative Personal Assistant Relationship Specialty Start Date End Date Dodie Rodriguez MD [address] [place] [address] PCP - General Internal Medicine 03/16/17 Dodie Rodriguez MD [address] [place] [address] PCP - [place] [employer] Attributed 11/25/19 04/25/23 documented as of this encounter
--- OUTSIDE RECORDS SUMMARY | 2024-09-06 16:16 | XMS_ITS | Encounter Summary ---
Author Organization [facility] [place] [facility] Address [address] [place] [address] Care Team Providers Care Computer Systems Information Director Name Role Phone Dodie Rodriguez MD Primary Care Provider [phone] Reason for Visit * Reason Comments Advice Only Encounter Details Date Type Department Care Team (Late st Contact Info) Description 06/26/2024 Telephone [facility] [address] [place] [phone] Dodie Rodriguez MD [address] [place] [address] Advice Only Social History Tobacco Use Types Packs/Day Years Used Date Smoking Tobacco: Never Smokeless Tobacco: Never Alcohol Use Standard Drinks/Week Comments No 0 (1 standard drink = 0.6 oz pur e alcohol) PHQ-2 Answer Date Recorded PHQ-2 Total Score 0 06/05/2024 Physical Activity Answer Date Recorded On average, how many days pe r week do you engage in moderate to strenuous exercise (like a brisk walk)? 2 days 06/05/2024 On average, how many minutes do you exercise per day at this level? 30 min 06/05/2024 Sex and Gender Information Value Date Recorded Sex Assigned at Male 08/16/2023 9:58 AM EDT Legal Sex Male 3:18 PM EDT Gender Identity Male 09/08/2022 11:01 PM EDT Sexual Orientation Heterosexual (straight) 08/15 9:58 AM EDT documented as of this encounter Miscellaneous Notes * Telephone Encounter - Casie Toscano RN - 06/26/2024 2:54 PM EST Called Minh. We reviewed getting MMR titers drawn. Ordered MMR titers. He is agreeable to doing so. * Telephone Encounter - Dodie Rodriguez MD - 06/26/2024 2:51 PM EST Please order titers documented in this encounter Plan of Treatment Upcoming Encounters Date Type Department Care Team (Late st Contact Info) Description 12/05/2024 9:00 AM EDT Office Visit [facility] 100 [facility] [address] [place] [phone] Dodie Rodriguez MD [address] [facility] [address] [place] [address] 02/09/2025 8:30 AM EDT Office Visit UROLOGY [id number] [address] [place] [address] [place] [phone] Keyshawn Wetzel MD [address] [place] [phone] documented as of this encounter Procedures Procedure Name Priority Date/Time Associated Diagnosis Comments MMR PANEL Routine 07/03/2024 9:08 AM EDT History of measles, mumps, rubella (MMR) vaccination unknown documented in this encounter Results * MMR Panel (07/03/2024 9:08 AM EDT) Rubeola Antibody IgG 93.90 AU/mL [facility] [employer] Comment: AU/mL ?Interpretation ----- ? <13.50 ? Not consistent with immunity 13.50-16.49 ?Equivocal >16.49 ? Consistent with immunity The presence of measles IgG suggests immunization or past or current infection with measles virus. For additional information, please refer to http://Popdust.Mobii/faq/WTE515 (This link is being provided for informational/ educational purposes only.) Mumps Antibody, IgG 236.00 AU/mL [facility] Comment: AU/mL ? Interpretation ------- ? <9.00 ? Not consistent with immunity 9.00-10.99 ?Equivocal >10.99 ?Consistent with immunity The presence of mumps IgG antibody suggests immunization or past or current infection with mumps virus. Rubella Antibody IgG 4.65 Index [employer] Comment: ?Index ?Interpretation ?----- ?<0.90 ?Not consistent with immunity ?0.90-0.99 ?Equivocal ?> or = 1.00 ?Consistent with immunity The presence of rubella IgG antibody suggests immunization or past or current infection with rubella virus. Blood Blood specimen / Unknown 07/03/2024 9:08 AM EDT 07/03/2024 9:08 AM EDT Dodie Rodriguez MD LAB BLOOD ORDERABLES Final Result [facility] [address] [place] [phone] documented in this encounter Visit Diagnoses Diagnosis History of measles, mumps, rubella (MMR) vaccination unknown- Primary documented in this encounter Care Teams Computer Systems Information Director Relationship Specialty Start Date End Date Dodie Rodriguez MD [address] [place] [address] PCP - General Internal Medicine 03/16/17 documented as of this encounter
--- OUTSIDE RECORDS SUMMARY | 2024-09-06 16:16 | XMS_ITS | Encounter Summary ---
Author Organization [facility] Address [address] [place] [address] Care Team Providers Care Voltmeter Operator Name Role Phone Dodie Rodriguez MD Primary Care Provider +- [phone] Dodie Rodriguez MD Unavailable [phone] Encounter Details Date Type Department Care Team (Late st Contact Info) Description 05/20/2017 Scanned Document [address] [address] Provider, Generic Social History Tobacco [...] Description 12/05/2024 9:00 AM EDT Office Visit [address] [phone] Dodie Rodriguez MD [address] [place] [phone] 02/09/2025 8:30 AM EDT Office Visit [facility] [id number] 7 [facility] [address] [place] [phone] Keyshawn Wetzel MD [address] [address] documented as of this encounter Visit Diagnoses Not on filedocumented in this encounter Care Teams Voltmeter Operator Relationship Specialty Start Date End Date Dodie Rodriguez MD [address] [place] [address] PCP - General Internal Medicine 03/16/17 Dodie Rodriguez MD [address] [place] [address] PCP - [place] Commercial Attributed 11/25/19 04/25/23 documented as of this encounter
--- OUTSIDE RECORDS SUMMARY | 2024-09-06 16:16 | XMS_ITS | Encounter Summary ---
Author Organization [facility] Address [address] [place] [address] Phone Care Team Providers Care Director Of Slot Operations Name Role Phone Dodie Rodriguez MD Primary Care Provider Encounter Details Date Type Department Care Team (Late st Contact Info) Description 06/18/2021 Telephone [facility] [address] [place] [address] Yuan Limon MD Social History [...] on file Sexual Orientation Not on file COVID-19 Exposure Response Date Recorded In the last month, have you been in contact with someone who was confirmed or suspected to have Coronavirus / COVID-19? Unable to assess 06/04/2021 7:43 AM EST documented as of this encounter Miscellaneous Notes * Telephone Encounter - Sol Moon - 06/18/2021 2:56 PM EST Pt called, he would like to speak with you. He has some questions for you and would not elaborate. Please call him back at [phone]. Thank you documented in this encounter Plan of Treatment Not on file documented as of this encounter Visit Diagnoses Not on filedocumented in this encounter Care Teams Director Of Slot Operations Relationship Specialty Start Date End Date Dodie Rodriguez MD [address] [place] [phone] PCP - General Internal Medicine 09/02/21 documented as of this encounter
--- OUTSIDE RECORDS SUMMARY | 2024-09-06 16:16 | XMS_ITS | Encounter Summary ---
Author Organization [facility] Address [address] [place] [address] Care Team Providers Care Welding Machine Operator Gas Name Role Phone Dodie Rodriguez MD Primary Care Provider [phone] Dodie Rodriguez MD Unavailable [phone] Reason for Visit * Reason Comments Other Encounter Details Date Type Department Care Team (Late st Contact Info) Description 02/13/[address] [address] Dodie Rodriguez MD [address] [place] [address] Other Social History Tobacco Use Types Packs/Day Years [...] Description 12/05/2024 9:00 AM EDT Office Visit [address] [place] [phone] Dodie Rodriguez MD [address] [place] [address] 02/09/2025 8:30 AM EDT Office Visit [facility] 7 [facility] [address] [place] [phone] Keyshawn Wetzel MD [address] [place] [address] documented as of this encounter Visit Diagnoses Not on filedocumented in this encounter Care Teams Welding Machine Operator Gas Relationship Specialty Start Date End Date Dodie Rodriguez MD [address] [place] [address] PCP - General Internal Medicine 03/16/17 Dodie Rodriguez MD [address] [place] [address] PCP - [place] Commercial Attributed 11/25/19 04/25/23 documented as of this encounter
--- OUTSIDE RECORDS SUMMARY | 2024-09-06 16:16 | XMS_ITS | Encounter Summary ---
Author Organization [facility] Address [address] [place] [address] Care Team Providers Care Production Assistant Name Role Phone Dodie Rodriguez MD Primary Care Provider [phone] Dodie Rodriguez MD Unavailable [phone] Encounter Details Date Type Department Care Team (Late st Contact Info) Description 02/02/2023 Telephone [facility] [address] [place] [address] Dodie Rodriguez MD [address] [place] [address] Social History Tobacco Use Types Packs/Day Years [...] Description 12/05/2024 9:00 AM EDT Office Visit [facility] [address] [place] [address] Dodie Rodriguez MD [address] [place] [address] 02/09/2025 8:30 AM EDT Office Visit [facility] 7 [facility] [address] [place] [address] Keyshawn Wetzel MD [address] [address] documented as of this encounter Visit Diagnoses Not on filedocumented in this encounter Care Teams Production Assistant Relationship Specialty Start Date End Date Dodie Rodriguez MD 100 [facility] [address] [place] [address] PCP - General Internal Medicine 03/16/17 Dodie Rodriguez MD 100 [facility] [address] [place] [address] PCP - [place] Commercial Attributed 11/25/19 04/25/23 documented as of this encounter
--- OUTSIDE RECORDS SUMMARY | 2024-09-06 16:16 | XMS_ITS | Encounter Summary ---
Author Organization [facility] Address [address] [place] [address] Care Team Providers Care Call Center Support Representative Name Role Phone Dodie Rodriguez MD Primary Care Provider +- [phone] Dodie Rodriguez MD Unavailable [phone] Encounter Details Date Type Department Care Team (Late st Contact Info) Description 02/08/2018 Scanned Document [address] [address] Provider, Generic Social History Tobacco [...] Description 12/05/2024 9:00 AM EDT Office Visit [address] [phone] Dodie Rodriguez MD [address] [place] [address] 02/09/2025 8:30 AM EDT Office Visit [facility] 7 [facility] [address] [place] [phone] Keyshawn Wetzel MD [address] [address] documented as of this encounter Visit Diagnoses Not on filedocumented in this encounter Care Teams Call Center Support Representative Relationship Specialty Start Date End Date Dodie Rodriguez MD [address] [place] [address] PCP - General Internal Medicine 03/16/17 Dodie Rodriguez MD [address] [place] [address] PCP - [place] Commercial Attributed 11/25/19 04/25/23 documented as of this encounter
--- OUTSIDE RECORDS SUMMARY | 2024-09-06 16:16 | XMS_ITS | Encounter Summary ---
Author Organization [facility] Address [address] [place] [address] Care Team Providers Care Driller Machine Name Role Phone Ha Mckeon MD Primary Care Provider [phone] Dodie Rodriguez MD Primary Care Provider [phone]- [phone] Dodie Rodriguez MD Unavailable [phone] Encounter Details Date Type Department Care Team (Late st Contact Info) Description 11/19/2015 Scanned Document [address] [place] [address] Provider, Generic Social History Tobacco Use [...] AM EDT documented as of this encounter Progress Notes * Ha Mckeon MD - 11/24/2015 6:26 PM EDT Please ask patient if we manage his BP or 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 documented in this encounter Plan of Treatment Upcoming Encounters Date Type Department Care Team (Late st Contact Info) Description 12/05/2024 9:00 AM EDT Office Visit [facility] [place] [address] [place] [address] Dodie Rodriguez MD [address] [place] [address] 02/09/2025 8:30 AM EDT Office Visit [facility] 7 [facility] [address] [place] [phone] Keyshawn Wetzel MD [address] [place] [address] documented as of this encounter Visit Diagnoses Not on filedocumented in this encounter Care Teams Driller Machine Relationship Specialty Start Date End Date Ha Mckeon MD PCP - General Internal Medicine 01/03/15 03/15/17 Dodie Rodriguez MD [address] [place] [address] PCP - General Internal Medicine 03/16/17 Dodie Rodriguez MD [address] [place] [address] PCP - [place] Commercial Attributed 11/25/19 04/25/23 documented as of this encounter
--- OUTSIDE RECORDS SUMMARY | 2024-09-06 16:16 | XMS_ITS | Encounter Summary ---
Author Organization [facility] Address [address] [place] [address] Phone Care Team Providers Care Residential Direct Support Professional Name Role Phone Dodie Rodriguez MD Primary Care Provider [phone] Encounter Details Date Type Department Care Team (Late st Contact Info) Description 07/17/2020 Orders Only [facility] [address] [place] [address] ProviderChantell MD [address] [place], [place] [phone] Social History Tobacco Use Types Packs/Day Years Used Date Smoking Tobacco: Never Alcohol Use Standard Drinks/Week Comments Yes 0 (1 standard drink = 0.6 oz pure alcohol) Alcoholic Drinks/day: Occasional social drink Sex and Gender Information Value Date Recorded Sex Assigned at Not on file Legal Sex Male 4:59 PM EST Gender Identity Not on file Sexual Orientation Not on file documented as of this encounter Plan of Treatment Not on file documented as of this encounter Procedures Procedure Name Priority Date/Time Associated Diagnosis Comments EXT RESULT ENTRY Routine 07/17/2020 documented in this encounter Results * EXT RESULT ENTRY (07/17/2020) Historical Provider LAB BLOOD ORDERABLES Evita l Result documented in this encounter Visit Diagnoses Not on filedocumented in this encounter Care Teams Residential Direct Support Professional Relationship Specialty Start Date End Date Dodie Rodriguez MD [address] [place] [address] PCP - General Internal Medicine 09/02/21 documented as of this encounter
--- OUTSIDE RECORDS SUMMARY | 2024-09-06 16:16 | XMS_ITS | Encounter Summary ---
Author Organization [facility] Address [address] [place] [address] Care Team Providers Care Bellman Captain Name Role Phone Dodie Rodriguez MD Primary Care Provider [phone] Dodie Rodriguez MD Unavailable [phone] Reason for Visit * Reason Comments Other Advice Only Encounter Details Date Type Department Care Team (Late st Contact Info) Description 10/26/2022 Telephone [facility] [address] [place] [address] Dodie Rodriguez MD [address] [place], [place] [phone] Other; Advice Only Social History Tobacco Use Types [...] Telephone Encounter - Nereyda Burgess LPN - 10/26/2022 2:28 PM EDT noted * Telephone Encounter - Dodie Rodriguez MD - 10/26/2022 1:53 PM EDT Called patient to discuss. He had questions regarding covid precautions. Reviewed and updated on latest CDC recommendations * Telephone Encounter - Nereyda Burgess LPN - 10/26/2022 1:32 PM EDT Pt states he would like to speak with the provider regarding a 'personal matter . Pt states this isnon emergent but would like to speak with pcp personally. Pt did not want to disclose reason for call. documented in this encounter Plan of Treatment Upcoming Encounters Date Type Department Care Team (Late st Contact Info) Description 12/05/2024 9:00 AM EDT Office Visit [facility] 100 [facility] 101 [place] [address] Dodie Rodriguez MD [address] [address] 02/09/2025 8:30 AM EDT Office Visit [facility] ENDCD7 7 [facility] [address] [place] [phone] Keyshawn Wetzel MD [address] [place] [address] documented as of this encounter Visit Diagnoses Not on filedocumented in this encounter Care Teams Bellman Captain Relationship Specialty Start Date End Date Dodie Rodriguez MD 100 [facility] 101 [place] [address] PCP - General Internal Medicine 03/16/17 Dodie Rodriguez MD [address] [place] [address] PCP - [place] Commercial Attributed 11/25/19 04/25/23 documented as of this encounter
--- OUTSIDE RECORDS SUMMARY | 2024-09-06 16:16 | XMS_ITS | Encounter Summary ---
Author Organization [facility] Address [address] [place] [address] Care Team Providers Care Renal Technician Name Role Phone Dodie Rodriguez MD Primary Care Provider [phone] Dodie Rodriguez MD Unavailable [phone] Reason for Visit * Reason Comments Results Request Encounter Details Date Type Department Care Team (Late st Contact Info) Description 02/01/[address] [address] Dodie Rodriguez MD [address] [place] [address] Results Request Social History Tobacco Use Types Packs/Day Years [...] Telephone Encounter - Nereyda Burgess LPN - 02/01/2023 4:12 PM EDT Noted * Telephone Encounter - Dodie Rodriguez MD - 02/01/2023 4:08 PM EDT Reviewed with patient over phone documented in this encounter Plan of Treatment Upcoming Encounters Date Type Department Care Team (Late st Contact Info) Description 12/05/2024 9:00 AM EDT Office Visit [facility] [address] [place] [phone] Dodie Rodriguez MD [address] [place] [address] 02/09/2025 8:30 AM EDT Office Visit [facility] [address] [place] [phone] Keyshawn Wetzel MD [address] [place] [address] documented as of this encounter Visit Diagnoses Not on filedocumented in this encounter Care Teams Renal Technician Relationship Specialty Start Date End Date Dodie Rodriguez MD [address] [place] [address] PCP - General Internal Medicine 03/16/17 Dodie Rodriguez MD [address] [place] [address] PCP - [place] Commercial Attributed 11/25/19 04/25/23 documented as of this encounter
--- OUTSIDE RECORDS SUMMARY | 2024-09-06 16:16 | XMS_ITS | Encounter Summary ---
Author Organization [facility] Address [address] [place] [address] Care Team Providers Care Collections Clerk Name Role Phone Dodie Rodriguez MD Primary Care Provider [phone]- [phone] Dodie Rodriguez MD Unavailable [phone] Encounter Details Date Type Department Care Team (Late st Contact Info) Description 06/22/2017 Scanned Document [address] [address] Provider, Generic Social History Tobacco [...] Description 12/05/2024 9:00 AM EDT Office Visit [address] [phone] Dodie Rodriguez MD [address] [place] [address] 02/09/2025 8:30 AM EDT Office Visit [facility] EN[facility] 7 [facility] [address] [place] [phone] Keyshawn Wetzel MD [address] [address] documented as of this encounter Visit Diagnoses Not on filedocumented in this encounter Care Teams Collections Clerk Relationship Specialty Start Date End Date Dodie Rodriguez MD [address] [place] [address] PCP - General Internal Medicine 03/16/17 Dodie Rodriguez MD [address] [place] [address] PCP - [place] Commercial Attributed 11/25/19 04/25/23 documented as of this encounter
--- OUTSIDE RECORDS SUMMARY | 2024-09-06 16:16 | XMS_ITS | Encounter Summary ---
Author Organization [facility] Address [address] [place] [address] Care Team Providers Care Shellfish Weigher Name Role Phone Dodie Rodriguez MD Primary Care Provider [phone]- [phone] Dodie Rodriguez MD Unavailable [phone] Encounter Details Date Type Department Care Team (Late st Contact Info) Description 10/04/2018 Scanned Document [address] [address] Provider, Generic Social History Tobacco [...] Description 12/05/2024 9:00 AM EDT Office Visit [address] [phone] Dodie Rodriguez MD [address] [place] [address] 02/09/2025 8:30 AM EDT Office Visit [facility] EN[facility] 7 [facility] [address] [place] [phone] Keyshawn Wetzel MD [address] [address] documented as of this encounter Visit Diagnoses Not on filedocumented in this encounter Care Teams Shellfish Weigher Relationship Specialty Start Date End Date Dodie Rodriguez MD [address] [place] [address] PCP - General Internal Medicine 03/16/17 Dodie Rodriguez MD [address] [place] [address] PCP - [place] Commercial Attributed 11/25/19 04/25/23 documented as of this encounter
--- OUTSIDE RECORDS SUMMARY | 2024-09-06 16:16 | XMS_ITS | Encounter Summary ---
Author Organization [facility] Address [address] [place] [address] Care Team Providers Care Multi Disciplined Language Analyst Name Role Phone Dodie Rodriguez MD Primary Care Provider [phone] Dodie Rodriguez MD Unavailable [phone] Reason for Visit * Reason Comments Other Encounter Details Date Type Department Care Team (Late st Contact Info) Description 09/14/2022 Telephone [facility] [address] [place] [address] Dodie Rodriguez MD [address] [place] [address] Other Social History Tobacco Use Types Packs/Day [...] Telephone Encounter - Nereyda Burgess LPN - 09/14/2022 2:25 PM EDT Spoke with patient and advised that it is okay for him to take his medications as prescribed. Pt also wanted to know if he can eat before the vaccine. I advised that he is okay to eat before coming in for the vaccine that no fasting is needed prior to administration. Pt verbalized understanding. documented in this encounter Plan of Treatment Upcoming Encounters Date Type Department Care Team (Late st Contact Info) Description 12/05/2024 9:00 AM EDT Office Visit [facility] 100 [facility] 101 [place] [address] Dodie Rodriguez MD [address] [place] [phone] 02/09/2025 8:30 AM EDT Office Visit [facility] [address] [phone] Keyshawn Wetzel MD [address] [place] [address] documented as of this encounter Visit Diagnoses Not on filedocumented in this encounter Care Teams Multi Disciplined Language Analyst Relationship Specialty Start Date End Date Dodie Rodriguez MD [address] [place] [address] [address] [place] [address] PCP - General Internal Medicine 03/16/17 Dodie Rodriguez MD [address] [place] [address] [address] [place] [address] PCP - [place] Commercial Attributed 11/25/19 04/25/23 documented as of this encounter
--- OUTSIDE RECORDS SUMMARY | 2024-09-06 16:16 | XMS_ITS | Clinical Summary ---
Author Organization [facility] Address [address] [place] [address] Phone Care Team Providers Care Scroll Assembler Name Role Phone Dodie Rodriguez MD Primary Care Provider [phone] Allergies No known active allergies Medications spironolactone-h ydroCHLOROthiazi de (ALDACTAZIDE) 25-25 MG per tablet TAKE ONE TAB BY MOUTH EVERY DAY 90 tablet 4 02/28/2022 Active amLODIPine (NORVASC) 10 MG tablet TAKE 1/2 TABLET IN AM AND 1 TABLET AT NIGHT DAILY 135 tablet 5 08/10/2022 Active labetalol (NORMODYNE) 200 MG tablet TAKE 1 TABLET TWICE A DAY 180 tablet 5 01/20/2023 Active Active Problems Problem Noted Date Diagnosed Date 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 Hypokalemia 06/13/2020 Patient encounter status 01/04/2015 Benign essential hypertension 07/14/2013 Chronic kidney disease, Stage II (mild) 07/15/19 14 Myopia 07/14/2013 Other and unspecified hyperlipidemia 07/14/2013 Resolved Problems Problem Noted Date Diagnosed Date Resolved Date 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 06/25/2020 Immunizations Immunization Administration Dates Next Due Influenza TIV (IM) 02/09/2019, 6,03/09/2012,04/27/2011,01/31/2010, Tdap 05/11/2011 Family History Medical History Relation Comments Diabetes Mother Hypertension Mother Relation Status Comments Father Alive Mother Social History Tobacco Use Types Packs/Day Years Used Date Smoking Tobacco: Never Smokeless Tobacco: Never Tobacco Cessation:Counseling Given: Not Answered Alcohol Use Standard Drinks/Week Comments Yes 0 (1 standard drink = 0.6 oz pure alcohol) Alcoholic Drinks/day: Occasional social drink Sex and Gender Information Value Date Recorded Sex Assigned at Not on file Legal Sex Male 4:59 PM EST Gender Identity Not on file Sexual Orientation Not on file Last Filed Vital Signs Vital Sign Reading Time Taken Comments Blood Pressure 120/72 09/29/2022 2:05 PM EDT Pulse 90 09/29/2022 2:05 PM EDT Temperature - - Respiratory Rate - - Oxygen Saturation 97% 09/29/2022 2:05 PM EDT Inhaled Oxygen Concentration - - Weight 102 kg (224 lb) 09/02/2021 4:37 PM EDT Height 177.8 cm (5' 10 ) 01/28/2021 3:43 PM EDT Body Mass Index 32.14 01/28/2021 3:43 PM EDT Plan of Treatment Health Maintenance Due Date Last Done Comments Pneumococcal Vaccine: 50+ Years (1 of 2 - PCV) 1982 Colorectal Cancer Screening: Annual FOBT 2012 Colorectal Cancer Screening: Colonoscopy 2012 Colorectal Cancer Screening: Sigmoidoscopy 2012 Influenza Vaccine (Season Ended) 2024 02/12/2022, 02/11/2021, 01/28/2020, Additional history exists Hepatitis B Vaccine Aged Out No longe r eligible based on patient's age to complete this topic Insurance [address] [place] [address] [facility] Care Teams Scroll Assembler Relationship Specialty Start Date End Date Dodie Rodriguez MD [address] [place] [phone] PCP - General Internal Medicine 09/02/21
--- OUTSIDE RECORDS SUMMARY | 2024-09-06 16:16 | XMS_ITS | Encounter Summary ---
Author Organization [facility] Address [address] [place] [address] Care Team Providers Care Product Expert Name Role Phone Dodie Rodriguez MD Primary Care Provider [phone]- [phone] Dodie Rodriguez MD Unavailable [phone] Encounter Details Date Type Department Care Team (Late st Contact Info) Description 05/23/2019 Scanned Document [address] [phone] Provider, Generic Social History Tobacco [...] Description 12/05/2024 9:00 AM EDT Office Visit [address] [phone] Dodie Rodriguez MD [address] [place] [address] 02/09/2025 8:30 AM EDT Office Visit [facility] EN[facility] 7 [facility] [address] [place] [phone] Keyshawn Wetzel MD [address] [address] documented as of this encounter Visit Diagnoses Not on filedocumented in this encounter Care Teams Product Expert Relationship Specialty Start Date End Date Dodie Rodriguez MD [address] [place] [address] PCP - General Internal Medicine 03/16/17 Dodie Rodriguez MD [address] [place] [address] PCP - [place] Commercial Attributed 11/25/19 04/25/23 documented as of this encounter
--- OUTSIDE RECORDS SUMMARY | 2024-09-06 16:16 | XMS_ITS | Encounter Summary ---
Author Organization [facility] Address 100 [place] [address] Care Team Providers Care Supervisor Core Shop Name Role Phone Dodie Rodriguez MD Primary Care Provider [phone] Reason for Visit * Reason Comments Appointment Encounter Details Date Type Department Care Team (Late st Contact Info) Description 08/11/2023 Telephone [facility] [address] [place] [address] Keyshawn Wetzel MD [address] [place] [address] Appointment Social History Tobacco Use Types Packs/Day Years [...] Miscellaneous Notes * Telephone Encounter - Muriel Rain - 08/12/2023 7:48 AM EDT All set * Telephone Encounter - Maya Gastelum - 08/11/2023 4:10 PM EDT I left the patient a voicemail to call back after multiple calls back to back to hopefully have patient product picker. Patient needs rectal swab in [place] office tomorrow 08/11 to hopefully be able to still have biopsy on 08/17. documented in this encounter Plan of Treatment Upcoming Encounters Date Type Department Care Team (Late st Contact Info) Description 12/05/2024 9:00 AM EDT Office Visit [facility] [address] [phone] Dodie Rodriguez MD 100 [place] [address] 02/09/2025 8:30 AM EDT Office Visit [facility] ENORD[facility] [address] [place] [phone] Keyshawn Wetzel MD [address] [place] [address] documented as of this encounter Visit Diagnoses Not on filedocumented in this encounter Care Teams Supervisor Core Shop Relationship Specialty Start Date End Date Dodie Rodriguez MD [address] [place] [address] [place] [address] PCP - General Internal Medicine 03/16/17 documented as of this encounter
--- OUTSIDE RECORDS SUMMARY | 2024-09-06 16:16 | XMS_ITS | Encounter Summary ---
Author Organization [facility] Address [address] [place] [address] Care Team Providers Care Automotive Warranty Administrator Name Role Phone Dodie Rodriguez MD Primary Care Provider [phone] Dodie Rodriguez MD Unavailable [phone] Encounter Details Date Type Department Care Team (Late st Contact Info) Description 04/03/2022 Scanned Document [facility] Dodie Rodriguez MD 100 [facility] [address] [place], [place] [phone] Social History Tobacco Use Types Packs/Day Years [...] Description 12/05/2024 9:00 AM EDT Office Visit [facility] 100 [facility] [address] [place] [phone] Dodie Rodriguez MD [address] [place] [address] 02/09/2025 8:30 AM EDT Office Visit [facility] EN[facility] 7 [facility] [address] [place] [phone] Keyshawn Wetzel MD [address] [place] [address] documented as of this encounter Visit Diagnoses Not on filedocumented in this encounter Care Teams Automotive Warranty Administrator Relationship Specialty Start Date End Date Dodie Rodriguez MD [address] [place] [address] PCP - General Internal Medicine 03/16/17 Dodie Rodriguez MD [address] [place] [address] PCP - [place] Commercial Attributed 11/25/19 04/25/23 documented as of this encounter
--- OUTSIDE RECORDS SUMMARY | 2024-09-06 16:16 | XMS_ITS | Encounter Summary ---
Author Organization [facility] Address [address] [place] [address] Care Team Providers Care Spent Grain Dryer Name Role Phone Mike, Ha Pham MD Primary Care Provider [phone] Dodie Rodriguez MD Primary Care Provider + [phone] Dodie Rodriguez MD Unavailable [phone] Encounter Details Date Type Department Care Team (Late st Contact Info) Description 11/17/2016 Scanned Document [address] [phone] Provider, Generic Social History Tobacco [...] Description 12/05/2024 9:00 AM EDT Office Visit [address] [phone] Dodie Rodriguez MD [address] [place] [address] [place] [address] 02/09/2025 8:30 AM EDT Office Visit [facility] 7 [facility] [address] [place] [phone] Keyshawn Wetzel MD [address] [place] [address] documented as of this encounter Visit Diagnoses Not on filedocumented in this encounter Care Teams Spent Grain Dryer Relationship Specialty Start Date End Date Ha Mckeon MD PCP - General Internal Medicine 01/03/15 03/15/17 Dodie Rodriguez MD [address] [place] [id number] PCP - General Internal Medicine 03/16/17 Dodie Rodriguez MD [address] [place] [address] PCP - [place] Commercial Attributed 11/25/19 04/25/23 documented as of this encounter
--- OUTSIDE RECORDS SUMMARY | 2024-09-06 16:16 | XMS_ITS | Encounter Summary ---
Author Organization [facility] Address [address] [place] [address] Phone Care Team Providers Care Behavioral Health Specialist Name Role Phone Dodie Rodriguez MD Primary Care Provider Encounter Details Date Type Department Care Team (Late st Contact Info) Description 10/16/2021 Telephone [facility] [address] [place] [address] Yuan Limon MD Social History [...] encounter Miscellaneous Notes * Telephone Encounter - Ramses Cunningham MD - 10/16/2021 11:38 AM EDT Please call patient. There are absolutely no contraindications. * Telephone Encounter - Joanna Mccarthy - 10/16/2021 10:42 AM EDT Please advise * Telephone Encounter - Sol Moon - 10/16/2021 9:34 AM EDT Pt called, he would like to get the shingles vaccine but is concerned about interactions between the vaccine and his bp meds. He would like to know if this is something that will stop him for gettingthe vaccine. Please advise Thank you [phone] documented in this encounter Plan of Treatment Not on file documented as of this encounter Visit Diagnoses Not on filedocumented in this encounter Care Teams Behavioral Health Specialist Relationship Specialty Start Date End Date Dodie Rodriguez MD [address] [place] [address] PCP - General Internal Medicine 09/02/21 documented as of this encounter
--- OUTSIDE RECORDS SUMMARY | 2024-09-06 16:16 | XMS_ITS | Encounter Summary ---
Author Organization [facility] Address [address] [place] [address] Care Team Providers Care Geometrician Name Role Phone Dodie Rodriguez MD Primary Care Provider +1- [phone] Dodie Rodriguez MD Unavailable [phone] Encounter Details Date Type Department Care Team (Late st Contact Info) Description 09/03/2021 Scanned Document [facility] Dodie Rodriguez MD 100 [facility] [address] [place], [place] [phone] Social History Tobacco Use Types Packs/Day Years [...] Description 12/05/2024 9:00 AM EDT Office Visit [facility] 100 [facility] [address] [place] [phone] Dodie Rodriguez MD [address] [place] [address] 02/09/2025 8:30 AM EDT Office Visit [facility] 7 [facility] [address] [place] [phone] Keyshawn Wetzel MD [address] [place] [address] 644402 documented as of this encounter Visit Diagnoses Not on filedocumented in this encounter Care Teams Geometrician Relationship Specialty Start Date End Date Dodie Rodriguez MD [address] [place] [address] PCP - General Internal Medicine 03/16/17 Dodie Rodriguez MD [address] [place] [address] PCP - [place] Commercial Attributed 11/25/19 04/25/23 documented as of this encounter
--- OUTSIDE RECORDS SUMMARY | 2024-09-06 16:16 | XMS_ITS | Encounter Summary ---
Author Organization [facility] Address [address] [place] [address] Care Team Providers Care Staker Surveying Name Role Phone Mike, Ha Pham MD Primary Care Provider [phone] Dodie Rodriguez MD Primary Care Provider + [phone] Dodie Rodriguez MD Unavailable [phone] Encounter Details Date Type Department Care Team (Late st Contact Info) Description 01/21/2016 Scanned Document [address] [phone] Provider, Generic Social History Tobacco [...] Description 12/05/2024 9:00 AM EDT Office Visit [address] [phone] Dodie Rodriguez MD [address] [place] [address] [place] [address] 02/09/2025 8:30 AM EDT Office Visit [facility] 7 [facility] [address] [place] [phone] Keyshawn Wetzel MD [address] [place] [address] documented as of this encounter Visit Diagnoses Not on filedocumented in this encounter Care Teams Staker Surveying Relationship Specialty Start Date End Date Ha Mckeon MD PCP - General Internal Medicine 01/03/15 03/15/17 Dodie Rodriguez MD [address] [place] [phone] PCP - General Internal Medicine 03/16/17 Dodie Rodriguez MD [address] [place] [address] PCP - [place] Commercial Attributed 11/25/19 04/25/23 documented as of this encounter
--- OUTSIDE RECORDS SUMMARY | 2024-09-06 16:16 | XMS_ITS | Encounter Summary ---
Author Organization [facility] Address [address] [place] [address] Care Team Providers Care Cafe Lead Name Role Phone Dodie Rodriguez MD Primary Care Provider +- [phone] Dodie Rodriguez MD Unavailable [phone] Encounter Details Date Type Department Care Team (Late st Contact Info) Description 06/14/2017 Scanned Document [address] [phone] Provider, Generic Social History Tobacco [...] Description 12/05/2024 9:00 AM EDT Office Visit [address] [phone] Dodie Rodriguez MD [address] [place] [address] 884012 02/09/2025 8:30 AM EDT Office Visit [facility] 7 [facility] [address] [place] [phone] Keyshawn Wetzel MD [address] [address] documented as of this encounter Procedures Procedure Name Priority Date/Time Associated Diagnosis Comments HX GASTROENTEROLOGY COLONOSCOPY-SCAN 06/14/2017 documented in this encounter Results * HX GASTROENTEROLOGY COLONOSCOPY-SCAN (06/14/2017) Narrative 06/14/2017 Ordered by an unspecified provider. us Generic Provider HX AMB PROCEDURES Edited Result - Final documented in this encounter Visit Diagnoses Not on filedocumented in this encounter Care Teams Cafe Lead Relationship Specialty Start Date End Date Dodie Rodriguez MD [address] [place] [address] PCP - General Internal Medicine 03/16/17 Dodie Rodriguez MD [address] [place] [address] PCP - [place] Commercial Attributed 11/25/19 04/25/23 documented as of this encounter
--- OUTSIDE RECORDS SUMMARY | 2024-09-06 16:16 | XMS_ITS | Encounter Summary ---
Author Organization [facility] Address [address] [place] [address] Care Team Providers Care Enrollment Processor Name Role Phone Mike, Ha Pham MD Primary Care Provider [phone] Dodie Rodriguez MD Primary Care Provider + [phone] Dodie Rodriguez MD Unavailable [phone] Encounter Details Date Type Department Care Team (Late st Contact Info) Description 05/12/2016 Scanned Document [address] [phone] Provider, Generic Social History Tobacco [...] Description 12/05/2024 9:00 AM EDT Office Visit [address] [phone] Dodie Rodriguez MD [address] [place] [address] [place] [address] 02/09/2025 8:30 AM EDT Office Visit [facility] 7 [facility] [address] [place] [phone] Keyshawn Wetzel MD [address] [place] [address] documented as of this encounter Visit Diagnoses Not on filedocumented in this encounter Care Teams Enrollment Processor Relationship Specialty Start Date End Date Ha Mckeon MD PCP - General Internal Medicine 01/03/15 03/15/17 Dodie Rodriguez MD [address] [place] [phone] PCP - General Internal Medicine 03/16/17 Dodie Rodriguez MD [address] [place] [address] PCP - [place] Commercial Attributed 11/25/19 04/25/23 documented as of this encounter
--- OUTSIDE RECORDS SUMMARY | 2024-09-06 16:16 | XMS_ITS | Clinical Summary ---
Author Organization [facility] Address [address] [place] [address] Care Team Providers Care Launch Engineer Name Role Phone Unavailable Primary Care Provider Unavailabl e Social History Tobacco Use Types Packs/Day Years Used Date Smoking Tobacco: Never Assessed Sex and Gender Information Value Date Recorded Sex Assigned at Not on file Gender Identity Not on file Sexual Orientation Not on file Plan of Treatment Health Maintenance Due Date Last Done Comments COVID-19 Vaccine (#1) 1963 Depression Screening 1975 Preventative Health Evaluation 1981 Colon Cancer Screening (Colonoscopy) 2008 Shingrix-Zoster Vaccine (1 of 2) 2013 DTap / Tdap / Td (2 - Td or Tdap) 05/11/2021 05/11/2011 Influenza Vaccine (#1) 2023 9, 02/03/2016, 03/09/2012, Additional history exists RSV Adult > 60+ Yrs or (1 - 1-dose 75+ series) 2038 Hepatitis C Screening Completed 09/04/2021 Hepatitis B Vaccines Aged Out No long er eligible based on patient's age to complete this topic Pneumococcal Vaccine Aged Out No long er eligible based on patient's age to complete this topic RSV Ped < 20 months Aged Out No longe r eligible based on patient's age to complete this topic
--- OUTSIDE RECORDS SUMMARY | 2024-09-06 16:16 | XMS_ITS | Encounter Summary ---
Author Organization [facility] Address [address] [place] [address] Care Team Providers Care Margin Analyst Name Role Phone Dodie Rodriguez MD Primary Care Provider +- [phone] Dodie Rodriguez MD Unavailable [phone] Encounter Details Date Type Department Care Team (Late st Contact Info) Description 11/22/2017 Scanned Document [address] [phone] Provider, Generic Social History Tobacco [...] Description 12/05/2024 9:00 AM EDT Office Visit [address] [phone] Dodie Rodriguez MD [address] [place] [address] 02/09/2025 8:30 AM EDT Office Visit [facility] 7 [facility] [address] [place] [phone] Keyshawn Wetzel MD [address] [address] documented as of this encounter Visit Diagnoses Not on filedocumented in this encounter Care Teams Margin Analyst Relationship Specialty Start Date End Date Dodie Rodriguez MD [address] [place] [address] PCP - General Internal Medicine 03/16/17 Dodie Rodriguez MD [address] [place] [address] PCP - [place] Commercial Attributed 11/25/19 04/25/23 documented as of this encounter
--- OUTSIDE RECORDS SUMMARY | 2024-09-06 16:16 | XMS_ITS | Encounter Summary ---
Author Organization [facility] Address [address] [place] [address] Care Team Providers Care Creative Writing Teacher Name Role Phone Dodie Rodriguez MD Primary Care Provider [phone]- [phone] Reason for Visit * Reason Comments Appointment Also a pt of Dr. Kendrick bob Encounter Details Date Type Department Care Team (Late st Contact Info) Description 06/06/2024 Telephone [facility] Urologic Surgery [place] [address] [facility] [address] [place] [address] Meet Alcala MD [address] [place], [place] [address] Appointment (Also a pt of Dr. Wetzel) Social History Tobacco Use Types Packs/Day Years [...] encounter Miscellaneous Notes * Telephone Encounter - Keyshawn Wetzel MD - 06/13/2024 8:45 AM EST Okay, if that's what he wants * Telephone Encounter - Muriel Rain - 06/12/2024 1:06 PM EST Patient would like to see Dr. Alcala regarding this procedure as Dr. Alcala did one on him in the past * Telephone Encounter - Muriel Rain - 06/09/2024 10:43 AM EST Called and spoke with patient. Patient stated he would like this procedure done with Dr. Alcala. Advised a message will me sent to his office for them to schedule an appointment. Dr. Alcala, I am unsure who your schedulers are but patient would like for you to do the biopsy as he has had one done with you before. Can you have your office please reach out to schedule. documented in this encounter Plan of Treatment Upcoming Encounters Date Type Department Care Team (Late st Contact Info) Description 12/05/2024 9:00 AM EDT Office Visit [facility] 100 [facility] [address] [place] [phone] Dodie Rodriguez MD 100 [facility] [address] [place] [address] 02/09/2025 8:30 AM EDT Office Visit [facility] [address] [place] [address] [place] [phone] Keyshawn Wetzel MD [address] [place], [place] [phone] documented as of this encounter Visit Diagnoses Not on filedocumented in this encounter Care Teams Creative Writing Teacher Relationship Specialty Start Date End Date Dodie Rodriguez MD [address] [place] [address] PCP - General Internal Medicine 03/16/17 documented as of this encounter
[2024-09-06 16:17] VITALS: BP 130/78; PULSE 100; O2SAT 97; BMI 31.2
--- OUTSIDE RECORDS SUMMARY | 2024-09-06 16:17 | XMS_ITS | Encounter Summary ---
Author Organization [facility] Address [address] [place] [address] Care Team Providers Care Sewing Machine Assembler Name Role Phone Dodie Rodriguez MD Primary Care Provider +1- [phone] Encounter Details Date Type Department Care Team (Late st Contact Info) Description 12/29/[address] [facility] 10 [facility] [address] [place] [address] Adeel Huizar MD 113 [facility] [address] [place], [place] [address] Social History Tobacco Use Types Packs/Day Years [...] Description 12/05/2024 9:00 AM EDT Office Visit [address] [place] [phone] Dodie Rodriguez MD [address] [place] [address] 02/09/2025 8:30 AM EDT Office Visit [facility] 7 [facility] [address] [place] [phone] Keyshawn Wetzel MD [address] [place], [place] [phone] documented as of this encounter Procedures Procedure Name Priority Date/Time Associated Diagnosis Comments PATHOLOGY REPORT 12/29/2023 12:0 0 AM EDT documented in this encounter Results * PATHOLOGY REPORT (12/29/2023 12:00 AM EDT) us Adeel Huizar MD PATHOLOGY/CYTOLOGY ORDERABLE S Final Result documented in this encounter Visit Diagnoses Not on filedocumented in this encounter Care Teams Sewing Machine Assembler Relationship Specialty Start Date End Date Dodie Rodriguez MD [address] [place] [phone] PCP - General Internal Medicine 03/16/17 documented as of this encounter
--- OUTSIDE RECORDS SUMMARY | 2024-09-06 16:17 | XMS_ITS | Encounter Summary ---
Author Organization [facility] Address [address] [place] [address] Care Team Providers Care Master Automotive Technician Name Role Phone Dodie Rodriguez MD Primary Care Provider +1- [phone] Encounter Details Date Type Department Care Team (Late st Contact Info) Description 06/03/2024 Prep for Surgery [facility] Urologic Surgery [address] [address] Meet Alcala MD [address] [place] [address] [address] [place] [address] Prostate cancer (HCC) (Primary Dx) Social History Tobacco Use Types Packs/Day Years [...] AM EDT documented as of this encounter Functional Status * Question Answer Date of Assessment Author Feeling nervous, anxious, or on edge 0 06/05/2024 12:27 PM Lorenza Ingram MA Not being able to stop or control worrying 0 06/05/2024 12:27 PM Lorenza Ingram MA Worrying too much about different things 0 06/05/2024 12:27 PM Lorenza Ingram MA Trouble relaxing 0 06/05/2024 12:27 PM Lorenza Ingram MA Being so restless that it is hard to sit still 0 06/05/2024 12:27 PM Lorenza Ingram MA Becoming easily annoyed or irritable 0 06/05/2024 12:27 PM Lorenza Ingram MA Feeling afraid as if something awful might happen 0 06/05/2024 12:27 PM Lorenza Talbot MA * Over the past 2 weeks, how often have you been bothered by any of the following problems? Question Answer Date of Assessment Author Patient Health Questionnaire-2 Score 0 06/05/2024 12:26 PM Lorenza Nguyen MA * Question Answer Date of Assessment Author Patient Health Questionnaire-9 Score 0 06/05/2024 12:26 PM Lorenza Nguyen MA * Over the last 2 weeks, how often have you been bothered by any of the following problems? Question Answer Date of Assessment Author SHANNAN-7 Total Score 0 06/05/2024 12:27 PM Lorenza Ingram MA * Question Answer Date of Assessment Author Little interest or pleasure in doing things Not at all 06/05/2024 12:26 PM Lorenza Ingram MA Feeling down, depressed, or hopeless Not at all 06/05/2024 12:26 PM Lorenza Ingram MA Trouble falling or staying asleep, or sleeping too much Not at all 06/05/2024 12:26 PM Lorenza Ayala MA Feeling tired or having little energy Not at all 06/05/2024 12:26 PM Lorenza Ingram MA Poor appetite or overeating Not at all 06/05/2024 12 :26 PM Lorenza Ingram MA Feeling bad about yourself - or that you are a failure or have let yourself or your family down Not at all 06/05/2024 12:26 PM Lorenza Ingram MA Trouble concentrating on things, such as reading the newspaper or watching television Not at all 06/05/2024 12:26 PM Lorenza Ingram MA Moving or speaking so slowly that other people could have noticed? Or the opposite - being so fidgety or restless that you have been moving around a lot more than usual. Not at all 06/05/2024 12:26 PM Lorenza Sigala MA Thoughts that you would be better off or hurting yourself in some way Not at all 06/05/2024 12:26 PM Lorenza Bernal MA documented as of this encounter Plan of Treatment Upcoming Encounters Date Type Department Care Team (Late st Contact Info) Description 12/05/2024 9:00 AM EDT Office Visit [facility] 100 [facility] [address] [place] [phone] Dodie Rodriguez MD 100 [facility] [address] [place] [address] 02/09/2025 8:30 AM EDT Office Visit [facility] 7 [facility] [address] [place] [address] Keyshawn Wetzel MD [address] [place] [address] documented as of this encounter Visit Diagnoses Diagnosis Prostate cancer (HCC)- Primary Malignant neoplasm of prostate documented in this encounter Care Teams Master Automotive Technician Relationship Specialty Start Date End Date MaDodie mendez MD [address] [place] [address] PCP - General Internal Medicine 03/16/17 documented as of this encounter
--- OUTSIDE RECORDS SUMMARY | 2024-09-06 16:17 | XMS_ITS | Encounter Summary ---
Author Organization [facility] Address [address] [place] [address] Care Team Providers Care Director Maternal Child Name Role Phone Dodie Rodriguez MD Primary Care Provider +1- [phone] Reason for Visit * Reason Comments Prior Authorization MRI Prostate w w/o c ontrast Encounter Details Date Type Department Care Team (Late st Contact Info) Description 05/19/2024 Telephone [facility] U[facility] [place] [address] [facility] [address] [place] [address] Keyshawn Wetzel MD [address] [place] [address] Prior Authorization (MRI Prostate w w/o contrast) Social History Tobacco Use Types Packs/Day Years [...] 9:00 AM EDT Office Visit [facility] [place] [address] [place] [address] Dodie Rodriguez MD [address] [place] [address] 02/09/2025 8:30 AM EDT Office Visit [facility] ENNMD7 7 [facility] [address] [place] [phone] Keyshawn Wetzel MD [address] [address] documented as of this encounter Visit Diagnoses Not on filedocumented in this encounter Care Teams Director Maternal Child Relationship Specialty Start Date End Date Dodie Rodriguez MD [address] [place] [address] PCP - General Internal Medicine 03/16/17 documented as of this encounter
--- OUTSIDE RECORDS SUMMARY | 2024-09-06 16:17 | XMS_ITS | Clinical Summary ---
Author Organization [facility] Address [address] [place] [address] Care Team Providers Care Type Bar And Segment Assembler Name Role Phone Dodie Rodriguez MD Primary Care Provider [phone] Allergies No known active allergies Medications amLODIPine (NORVASC) 10 MG tablet 1 tablet (10 mg total). 1/2 tabet qhs Active labetalol (NORMODYNE) 200 MG tablet Take 1 tablet (200 mg total) by mouth 2 (two) times a day. 1 11/19/2015 Active spironolactone-h ydrochlorothiazi de (ALDACTAZIDE) 25-25 MG per tablet Take 1 tablet by mouth daily. 1 01/15/2016 Active atorvastatin (LIPITOR) 40 MG tabletIndication s:Hypercholester olemia Take 1 tablet (40 mg total) by mouth daily. 90 tablet 1 06/05/2024 Active phenazopyridine (PYRIDIUM) 200 MG tabletIndication s:Elevated PSA,Burning with urination Take 1 tablet (200 mg total) by mouth 3 (three) times a day in the morning, mid-day and early evening. 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 Resolved Problems Problem Noted Date Diagnosed Date Resolved Date Annual physical exam 01/04/2015 024 Encounters Date Type Department Care Team Description 07/31/2024 Telephone [facility] [address] [facility] [address] [place] [phone] Dodie Rodriguez MD Other 07/24/2024 Orders Only [facility] [address] [address] Keyshawn Wetzel MD Prostate cancer (HCC) (Primary Dx) 07/19/2024 10:30 AM EDT Ancillary Procedure [facility] [address] [place] [address] Meet Alcala MD 07/19/2024 10:30 AM EDT Procedure visit [facility] [place] [address] [facility] [address] [place] [address] Meet Alcala MD Prostate cancer (HCC) (Primary Dx) 07/19/2024 8:02 AM EDT - 07/19/2024 11:59 PM EDT Hospital Encounter [facility] [address] [place] [address] Meet Alcala MD Discharge Disposition: Home or Self Care 07/19/2024 Travel 07/17/2024 Telephone [facility] [address] [phone] Keyshawn Wetzel MD Advice Only 07/12/2024 Telephone [facility] [address] [address] Meet Alcala MD 07/11/2024 Telephone [facility] [address] [address] Meet Alcala MD 07/11/2024 Telephone [facility] [address] [place] [phone] Dodie Rodriguez MD Results Request 07/10/2024 Telephone [facility] [place] [address] [facility] [address] [place] [address] Meet Alcala MD 07/08/2024 Orders Only [facility] [place] [address] [facility] [address] [place] [phone] Meet Alcala MD Prostate cancer (HCC) (Primary Dx) 07/04/2024 2:30 PM EDT Clinical Support [facility] [address] [place] [address] Rebel Nowak PA-C Prostate cancer (HCC) (Primary Dx) 06/26/[address] [address] Dodie Rodriguez MD Advice Only 06/16/2024 Telephone [facility] [address] [place] [phone] Meet Alcala MD Other; Appointment from Last 3 Months Immunizations Immunization Administration Dates Next Due Influenza (AFLURIA/FLUZONE) Inactivated/Split Quadrivalent with Preservative IM 04/27/2011,01/31/2010,02/21/2009 Influenza Inactivated/Split Preservative Free IM 02/09/2019,02/03/2016,03/09/2012 Influenza, Quadrivalent (FLU ARIX, AFLURIA, FLULAVAL, FLUZONE) Preservative Free IM 02/12/2022 Influenza, Quadrivalent (FLU CELVAX) MDCK, Preservative Free IM 02/21/2023,02/11/2021,01/28/2020 Influenza, Trivalent (FLUARI X, AFLURIA, FLULAVAL, FLUZONE) Preservative Free IM 02/05/2024 Influenza, Unspecified 02/11/2021,01/28/2020, Tdap 12/01/2022,05/11/2011 Zoster Vaccine Recombinant (Shingrix) 12/18/2022 ,09/15/2022 Family History Medical History Relation Name Comments Colon polyps Father Hypertension Father Diabetes type I Mother No Known Problems Sister Relation Name Status Comments Father Alive Mother Alive Sister Alive Social History Tobacco Use Types Packs/Day Years Used Date Smoking Tobacco: Never Smokeless Tobacco: Never Tobacco Cessation:Counseling Given: Not Answered Alcohol Use Standard Drinks/Week Comments No 0 [...] Orientation Heterosexual (straight) 08/15 9:58 AM EDT Last Filed Vital Signs Vital Sign Reading Time Taken Comments Blood Pressure 122/78 06/05/2024 12:24 PM EST Pulse 72 06/05/2024 12:24 PM EST Temperature 36.3 ??C (97.4 ??F) 06/05/2024 12:[address] Respiratory Rate 16 06/05/2024 12:24 PM EST Oxygen Saturation 98% 06/05/2024 12:24 PM EST Inhaled Oxygen Concentration - - Weight 97.3 kg (214 lb 6.4 oz) 06/05/2024 12:24 PM EST Height 172.7 cm (5' 8 ) 06/05/2024 12:24 PM EST Body Mass Index 32.6 06/05/2024 12:24 PM EST Plan of Treatment Upcoming Encounters Date Type Department Care Team (Late st Contact Info) Description 12/05/2024 9:00 AM EDT Office Visit [address] [phone] Dodie Rodriguez MD [address] [place] [address] 02/09/2025 8:30 AM EDT Office Visit [id number] [address] [facility] [address] [place] [phone] Keyshawn Wetzel MD [address] [phone] Health Maintenance Due Date Last Done Comments Pneumococcal Vaccines 50+ (1 of 2 - PCV) 1982 COVID-19 Vaccine (8 - Pfizer risk season) 2024 01/02/2024, 02/01/2023, 01/11/2022, Additional history exists Influenza Vaccine 11/24/2024 02/05/2024, , 02/12/2022, Additional history exists Physical 06/05/2025 06/05/2024, 08/11/2022, 08/08/2021, Additional history exists Colonoscopy 12/28/2026 12/29/2023, 06/14/2017 DTaP/Tdap/Td Vaccines (3 - Td or Tdap) 12/01/2032 12/01/2022, 05/11/2011 RSV Vaccine 60 years and older and Patients (1 - 1-dose 75+ series) 2038 Zoster (Shingles) Vaccine Completed 12/18/2022, HIV Screening Completed 01/29/2023 Hepatitis C Virus Screening Completed 01/29/2023 Hepatitis B Vaccines Aged Out No long er eligible based on patient's age to complete this topic Procedures Procedure Name Priority Date/Time Associated Diagnosis Comments PATHOLOGY REPORT Routine 07/19/2024 11:1 0 AM EDT US GUIDED TRANSRECTAL PROSTATE BIOPSY Routine 07/19/2024 10:25 AM EDT Prostate cancer (HCC) FLUOROQUINOLONE RESISTANT ENTERIC CULTURE W/RFLX Routine 07/04/2024 2:24 PM EDT Prostate cancer (HCC) MMR PANEL Routine 07/03/2024 9:08 AM EDT History of measles, mumps, rubella (MMR) vaccination unknown HIV 1/2 AG/AB CMIA REFLEX TO CONFIRMATION Routine 01/29/2023 10:06 AM EDT Annual physical exam HEPATITIS C VIRUS (HCV) ANTIBODY Routine 01/29/2023 10:06 AM EDT Annual physical exam HX GASTROENTEROLOGY COLONOSCOPY-SCAN 06/14/2017 from Last 3 Months or Most Recently Relevant to Health Maintenance Results * Pathology (07/19/2024 11:10 AM EDT) Report [facility] [place] [id number] ?? CLIA ID [id number] [address] [place] [address] ??[id number] Surgical Pathology Report PATIENT NAME: VIKY LUIS REC NUMBER: [id number] (AGE): 1965 (Age: 59) SPEC NUMBER: [id number] DATE OBTAINED: 07/19/2024 DIAGNOSIS: PROSTATE, TRANSRECTAL BIOPSIES: BENIGN PROSTATIC TISSUE. Synoptic Report: Prior Treatment: ??No A: Left Lateral Woodburn (LLA) ? Diagnosis: ??Benign Prostatic Tissue B: Left [place] (LA) ? Diagnosis: ??Benign Prostatic Tissue C: Left Lateral Middle (LLM) ? Diagnosis: ??Benign Prostatic Tissue D: Left Middle (LM) ? Diagnosis: ??Benign Prostatic Tissue E: Left Lateral Base (LLB) ? Diagnosis: ??Benign Prostatic Tissue F: Left Base (LB) ? Diagnosis: ??Benign Prostatic Tissue G: Right Lateral Woodburn (RLA) ? Diagnosis: ??Benign Prostatic Tissue H: Right [place] (RA) ? Diagnosis: ??Benign Prostatic Tissue I: Right Lateral Middle (RLM) ? Diagnosis: ??Benign Prostatic Tissue J: Right Middle (RM) ? Diagnosis: ??Benign Prostatic Tissue K: Right Lateral Base (RLB) ? Diagnosis: ??Benign Prostatic Tissue L: Right Base (RB) ? Diagnosis: ??Benign Prostatic Tissue M: FATMATA ? Diagnosis: ??Not Applicable N: FATMATA ? Diagnosis: ??Not Applicable O: FATMATA ? Diagnosis: ??Not Applicable P: FATMATA ? Diagnosis: ??Not Applicable Q: Left SV ? Diagnosis: ??Not Applicable R: Right SV ? Diagnosis: ??Not Applicable Clinical Stage Classification (cTNM) ? Clinical Stage Classification (cTNM): ??Not given PSA: ??Specify: ??8.5 Best Tumor Blocks for Future Studies ? Tumor Block(s): ??NA CAP eCC November 2017 Release jse/07/21/2024 Electronically Signed Out ? SANG TRIPLETT MD COMMENT [id number] [id number] Clinical Information and History: C61 Previous biopsy malignant. ANEUDY normal. Last PSA 8.5 ng/mL Tissue(s) Submitted: A: PROSTATE BIOPSY, LEFT LATERAL APEX B: PROSTATE BIOPSY, ??LEFT APEX C: PROSTATE BIOPSY, LEFT LATERAL MID D: PROSTATE BIOPSY, LEFT MID E: PROSTATE BIOPSY, LEFT LATERAL BASE F: PROSTATE BIOPSY, LEFT BASE G: PROSTATE BIOPSY, RIGHT LATERAL APEX H: PROSTATE BIOPSY, ??RIGHT APEX I: PROSTATE BIOPSY , RIGHT LATERAL MID J: PROSTATE BIOPSY, RIGHT MID K: PROSTATE BIOPSY, RIGHT LATERAL BASE L: PROSTATE BIOPSY, RIGHT BASE Gross Description: A-The specimen is received in formalin labeled left lateral apex prostate and consists of two cylindrical wray-white soft tissues measuring 0.7 x 0.1 cm and 0.8 x 0.1 cm. The specimen is submitted in toto for microscopic examination in block A1. ?? B-The specimen is received in formalin labeled left apex prostate and consists of a cylindrical wray-white soft tissue measuring 0.9 x 0.1 cm. The specimen is submitted in toto for microscopic examination in block B1. ?? C-The specimen is received in formalin labeled left lateral mid-prostate and consists of a cylindrical wray-white soft tissue measuring 1.2 x 0.1 cm. The specimen is submitted in toto for microscopic examination in block C1. ?? D-The specimen is received in formalin labeled left mid-prostate and consists of a cylindrical wray-white soft tissue measuring 1.1 x 0.1 cm. The specimen is submitted in toto for microscopic examination in block D1. ?? E-The specimen is received in formalin labeled left lateral base prostate and consists of a cylindrical wray-white soft tissue measuring 2.0 x 0.1 cm. The specimen is submitted in toto for microscopic examination in block E1. ?? F-The specimen is received in formalin labeled left base prostate and consists of a cylindrical wray-white soft tissue measuring 1.6 x 0.1 cm. The specimen is submitted in toto for microscopic examination in block F1. ?? G-The specimen is received in formalin labeled right lateral apex prostate and consists of two cylindrical wray-white soft tissues measuring 0.3 x 0.1 cm and 1.1 x 0.1 cm. The specimen is submitted in toto for microscopic examination in block G1. ?? H-The specimen is received in formalin labeled right apex prostate and consists of a cylindrical wray-white soft tissue measuring 1.1 x 0.1 cm. The specimen is submitted in toto for microscopic examination in block H1. ?? I-The specimen is received in formalin labeled right lateral mid-prostate and consists of a cylindrical wray-white soft tissue measuring 1.5 x 0.1 cm. The specimen is submitted in toto for microscopic examination in block I1. ?? J-The specimen is received in formalin labeled right mid-prostate and consists of a cylindrical wray-white soft tissue measuring 2.0 x 0.1 cm. The specimen is submitted in toto for microscopic examination in block J1. ?? K-The specimen is received in formalin labeled right lateral base prostate and consists of a cylindrical wray-white soft tissue measuring 1.3 x 0.1 cm. The specimen is submitted in toto for microscopic examination in block K1. ?? L-The specimen is received in formalin labeled right base prostate and consists of a cylindrical wray-white soft tissue measuring 1.7 x 0.1 cm. The specimen is submitted in toto for microscopic examination in block L1. The tissue is received on sponges and inked orange. [facility] 07/19/2024 11:1 0 AM EDT 07/20/2024 8:17 AM EDT Comment:PROSTATE BIOPSY, LEF T LATERAL APEX&PROSTATE BIOPSY, LEFT APEX&PROSTATE BIOPSY, LEFT LATERAL MID&PROSTATE BIOPSY, LEFT MID&PROSTATE BIOPSY, LEFT LATERAL BASE Meet Alcala MD PATHOLOGY/CYTOLOGY ORDERABLES Fi nal Result [facility] [address] [place] [address], [place] * US GUIDED TRANSRECTAL PROSTATE BIOPSY (07/19/2024 10:25 AM EDT) Anatomical Region Laterality Modality Ultrasound Narrative 07/19/2024 9:13 PM EDT Table formatting from the original result was not included. Urology Radiology Report Patient Name: Viky Luis Date of : ??1965 INDICATIONS: 1. Prostate cancer (HCC) ??US GUIDED TRANSRECTAL PROSTATE BIOPSY Transrectal Prostate Biopsy Impression: Active Surveillance / Confirmatory Bx Positive MRI PSA: [ 8.5 ] PSAD: ??[ 0.14 ] VOLUME: ??[ 60g ] PVR: ?? [ n/a ] FINDINGS: ??[ The prostate displays BPH. Heterogeneous tissue seen at the L apex, and R mid/apex medial locations. Blood flow with color doppler appears normal. Seminal vesicles shadowed out. Few tiny cysts, ??NO stones are visualized.] PATHOLOGY: ??[ Pending ] The prostate was anesthetized by MD with 1% Xylocaine at each seminal vesicle-base angle. ??Transrectal ultrasound was used to guide the biopsy needle. ??Twelve cores of tissue were obtained from the left and right lobes and sent to the lab for analysis. Meet Alcala MD IMG US ORDERABLES Final Result * Fluoroquinolone Culture w/Reflex (07/04/2024 2:24 PM EDT) Fluoroquinolone Resistant Enterobact Cult W/Susc SEE NOTE Edúkame-Edúkame Comment: ??FLUOROQUINOLONE RESISTANT ENTEROBACT CULT W/SUSC ?Micro Number: ?[id number] ??Test Status: ? Final ??Specimen Source: ?? Rectum ??Specimen Quality: ??Adequate ??Result: ?No fluoroquinolone resistant ? Enterobacteriaceae isolated. 07/04/2024 2:24 PM EDT 07/05/2024 11:40 AM EDT us Meet Alcala MD LAB AMB MICRO ORDERABLES Final R esult [facility] [address] [place] [phone] * MMR Panel (07/03/2024 9:08 AM EDT) Rubeola Antibody IgG 93.90 AU/mL Promon Comment: AU/mL ?Interpretation ----- ? <13.50 ? Not consistent with immunity 13.50-16.49 ?Equivocal >16.49 ? Consistent with immunity The presence of measles IgG suggests immunization or past or current infection with measles virus. For additional information, please refer to http://YaData.JetPay/faq/LIR017 (This link is being provided for informational/ educational purposes only.) Mumps Antibody, IgG 236.00 AU/mL Promon Comment: AU/mL ? Interpretation ------- ? <9.00 ? Not consistent with immunity 9.00-10.99 ?Equivocal >10.99 ?Consistent with immunity The presence of mumps IgG antibody suggests immunization or past or current infection with mumps virus. Rubella Antibody IgG 4.65 Index Promon Comment: ?Index ?Interpretation ?----- ?<0.90 ?Not consistent with immunity ?0.90-0.99 ?Equivocal ?> or = 1.00 ?Consistent with immunity The presence of rubella IgG antibody suggests immunization or past or current infection with rubella virus. Blood Blood specimen / Unknown 07/03/2024 9:08 AM EDT 07/03/2024 9:08 AM EDT Dodie Rodriguez MD LAB BLOOD ORDERABLES Final Result [facility] [address] [place] [phone] * HIV 1/2 Ag/Ab CMIA Reflex to Confirmation (01/29/2023 10:06 AM EDT) HIV Ag/Ab, 4th Gen NON-REACT LETICIA NON-REACT LETICIA [facility]on Comment: HIV-1 antigen and HIV-1/HIV-2 antibodies were not detected. There is no laboratory evidence of HIV infection. PLEASE NOTE: This information has been disclosed to you from records whose confidentiality may be protected by state law. ??If your state requires such protection, then the state law prohibits you from making any further disclosure of the information without the specific written consent of the person to whom it pertains, or as otherwise permitted by law. A general authorization for the release of medical or other information is NOT sufficient for this purpose. ?? For additional information please refer to http://education.Web Africa/faq/PIH456 (This link is being provided for informational/ educational purposes only.) The performance of this assay has not been clinically validated in patients less than 2 years old. Blood specimen (specimen) 01/29/2023 10:06 AM EDT 01/29/2023 10:09 AM EDT Narrative [facility] - 01/30/2023 1:18 AM EDT FASTING:YES FASTING: YES Dodie Rodriguez MD LAB BLOOD ORDERABLES Final Result Performing Organization Address [facility] de Phone Number [facility] [address] [place] [address] * HEPATITIS C VIRUS (HCV) ANTIBODY (01/29/2023 10:06 AM EDT) Pathologist [facility] Hepatitis C Antibody NON-REACT LETICIA NON-REACT LETICIA Promon Comment: HCV antibody was non-reactive. There is no laboratory evidence of HCV infection. In most cases, no further action is required. However, if recent HCV exposure is suspected, a test for HCV RNA (test code 80372) is suggested. For additional information please refer to http://education.Web Africa/faq/UNU40b4 (This link is being provided for informational/ educational purposes only.) Blood specimen (specimen) 01/29/2023 10:06 AM EDT 01/29/2023 10:09 AM EDT Narrative [facility] - 01/30/2023 1:18 AM EDT FASTING:YES FASTING: YES Dodie Rodriguez MD LAB BLOOD ORDERABLES Final Result Performing Organization Address [facility] de Phone Number [facility] [address] [place] [address] * HX GASTROENTEROLOGY COLONOSCOPY-SCAN (06/14/2017) Narrative 06/14/2017 Ordered by an unspecified provider. Generic Provider HX AMB PROCEDURES Edited Result - Final from Last 3 Months or Most Recently Relevant to Health Maintenance [facility] [place] [id number] [facility] Care Teams Type Bar And Segment Assembler Relationship Specialty Start Date End Date Dodie Rodriguez MD [address] [place] [address] PCP - General Internal Medicine 03/16/17
== END 2024-09-06 16:40 | disposition home or self-care (01) ==
LOC: HO.HKAE 16:14
PROVIDERS: PCP Internal Medicine; Visit Provider Internal Medicine Hypertension Specialist
DX: I10 Essential (primary) hypertension (principal)
CPT/HCPCS: 99214

== ENCOUNTER → 2024-09-06 16:13 | Outpatient (BNVA) | payer BC, SELFPAY | PROVIDERS: PCP Internal Medicine; Visit Provider Internal Medicine Hypertension Specialist | DX: I10 Essential (primary) hypertension (principal) ==

== ENCOUNTER 2025-03-07 16:07 | Outpatient (AMB) | payer BC, SELFPAY ==
--- NOTE | 2025-03-07 16:06 | HO.NEPHOV_ITS ---
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 He has been on multiple medications. At present blood pressure seems well controlled. He has elevated serum creatinine in the range of 1.4-1.6 mg/dL. 24 hour urine collection done in August 2021 revealed a creatinine clearance of 75 mL/minutes with a serum creatinine of 1.5 mg/dL. He has increased muscle mass which could explain some degree of elevation serum creatinine. Nevertheless he does have mild CKD. 10/06/23 ;Recently had elevated PSA ;underwent MRI and prostate biopsy ;Being followed closely by Urology 09/06/24 59-year-old male presenting for a wellness visit and review of medications. He is currently on a stable regimen of amlodipine, libidol, and spironolactone/aldactazide, with no medication changes in the past six months. The patient denies any new symptoms including respiratory issues, leg swelling, or urination problems. A recent prostate MRI and biopsy in June showed no evidence of cancer. The patient monitors his blood pressure at home, with values consistently in the 120s/75-80 mmHg, and is asymptomatic concerning hypotension. Blood tests were conducted recently, but results have been delayed in reaching our office from [employer]. 03/07/25 The patient is a 59-year-old male presenting for routine follow-up of chronic conditions including hyperlipidemia, hypertension, and chronic kidney disease. The patient reports being prescribed rosuvastatin by Dr. Rudolph to manage elevated triglycerides, which has effectively reduced his cholesterol levels. He continues to take amlodipine and spironolactone for hypertension, with no reported issues with medication adherence. Blood pressure readings at home generally range from 125-132/70-80 mmHg, with an office reading of 130/60 mmHg. The patient monitors his blood pressure regularly and reports stable readings. The patient's kidney function has shown some fluctuations, with a creatinine level of 1.48 mg/dL noted recently, which is consistent with his baseline. In November, his creatinine was 1.31 mg/dL, and BUN was 62 mg/dL, with variations attributed to fluid intake. He has adjusted his water intake to two bottles per day in colder weather, which he believes helps maintain stable kidney function. [facility] Surgical History No pertinent past surgical history Family History Mother Hypertension Social History Household Members Other:: Sister Housing: House Alcohol intake: never Patient Tobacco Use Status: Never used Tobacco Physical Exam Vital Signs: Last Vital Signs Pulse 86 03/07/25 16:07 BP 130/68 03/07/25 16:07 Pulse Ox 97 03/07/25 16:07 Oxygen Delivery Method Room Air 03/07/25 16:07 BMI result Body Mass Index 32.5 Comfortable Neck supple no JVD. Lungs entry equal no rales. Heart S1-S2 heard no gallop or rub. Abdomen soft nontender. Neuro alert awake oriented. No asterixis. Extremities no edema. Results Reviewed Results Reviewed: 09/02/24 Cr 1.46 eGFR 54 ml/mt 03/02/25 BUN 19 Cr 1.48 Assessment & Plan Assessment & Plan (1) HTN (hypertension): Code(s): I10 - Essential (primary) hypertension Category: Medical Plan Middle-aged man with resistant hypertension. Blood pressure is well controlled. We discussed low-salt diet and weight loss. Continue to increase p.o. fluid intake. Continue monitor blood pressure periodically. No change in antihypertensive regimen today. Elevated serum creatinine at baseline. This is due to the combination of increased muscle mass as well as mild CKD. 24 hour urine collection revealed a creatinine clearance of 75 mL/minute back in August 2021. At that time serum creatinine was 1.6 mg/dL. Continue to monitor renal function closely Avoid nephrotoxic agents including NSAIDs. Repeated 24 urine collection. The serum creatinine was as high as 1.65. Creatinine clearance was reported as 53 mL/minute in fact the corrected creatinine clearance is 65 mL/minute. Recent Cr is 1.48 - at baseline No changes were made today Orders: Orders Basic Metabolic Panel 6 Months I10 - Essential (primary) hypertension Coding Level of Care Code Est Pt Level 4 (04108) Diagnoses HTN (hypertension) I10
[2025-03-07 16:07] VITALS: BP 130/68; PULSE 86; O2SAT 97; BMI 32.5
--- OUTSIDE RECORDS SUMMARY | 2025-03-07 18:58 | XMS_ITS | Encounter Summary ---
Author Organization [facility] Address [address] [place] [address] Phone Care Team Providers Care Clinical Manager Home Care Name Role Phone Dodie Rodriguez MD Primary Care Provider [phone] Encounter Details Date Type Department Care Team (Late st Contact Info) Description 08/18/2021 Telephone [facility] [address] [place] [address] Yuan Limon MD Social History [...] on filedocumented in this encounter Care Teams Clinical Manager Home Care Relationship Specialty Start Date End Date Dodie Rodriguez MD [address] [place] [phone] PCP - General Internal Medicine 09/02/21 documented as of this encounter
--- OUTSIDE RECORDS SUMMARY | 2025-03-07 18:58 | XMS_ITS | Encounter Summary ---
Author Organization [facility] Address [address] [place] [address] Care Team Providers Care Dietary Services Director Name Role Phone Dodie Rodriguez MD Primary Care Provider +[phone]- [phone] Dodie Rodriguez MD Unavailable [phone] Li Limon MD Unavailable [phone] Encounter Details Date Type Department Care Team (Late st Contact Info) Description 06/14/2017 Scanned Document [address] [place] [address] Provider, Generic Social History Tobacco Use [...] on filedocumented in this encounter Care Teams Dietary Services Director Relationship Specialty Start Date End Date Dodie Rodriguez MD [address] [place] [address] PCP - General Internal Medicine 03/16/17 Dodie Rodriguez MD [address] [place] [address] PCP - [place] Commercial Attributed 11/25/19 04/25/23 Li Limon MD [address] [place] [address] Referring Provider Neurology 02/19/25 documented as of this encounter
--- OUTSIDE RECORDS SUMMARY | 2025-03-07 18:58 | XMS_ITS | Encounter Summary ---
Author Organization [facility] Address [address] [place] [address] Care Team Providers Care Well Service Derrick Worker Name Role Phone Dodie Rodriguez MD Primary Care Provider +1- [phone] Li Limon MD Unavailable [phone] Encounter Details Date Type Department Care Team (Late st Contact Info) Description 06/03/2024 Prep for Surgery [facility] Urologic Surgery [address] [address] Meet Alcala MD [address] [place] [address] Prostate cancer (HCC) (Primary Dx) Social History [...] * Question Answer Date of Assessment Author PHQ-2 Total Score 0 06/05/2024 12:26 PM Lorenza Ingram MA Little interest or pleasure in doing things [...] all 06/05/2024 12:26 PM Lorenza Bernal MA PHQ-9 Total Score 0 06/05/2024 12:26 PM Lorenza Ingram MA documented as of this encounter Plan of Treatment Not on file documented as of this encounter Visit Diagnoses Diagnosis Prostate cancer (HCC)- Primary Malignant neoplasm of prostate documented in this encounter Care Teams Well Service Derrick Worker Relationship Specialty Start Date End Date Dodie Rodriguez MD [address] [place] [address] PCP - General Internal Medicine 03/16/17 Li Limon MD [address] [place] [address] Referring Provider Neurology 02/19/25 documented as of this encounter
--- OUTSIDE RECORDS SUMMARY | 2025-03-07 18:58 | XMS_ITS | Encounter Summary ---
Author Organization [facility] Address [address] [place] [address] Care Team Providers Care Blueprint Maker Name Role Phone Dodie Rodriguez MD Primary Care Provider + [phone] Dodie Rodriguez MD Unavailable [phone] Li Limon MD Unavailable [phone] Encounter Details Date Type Department Care Team (Late st Contact Info) Description 05/20/2017 Scanned Document [address] [place] [address] Provider, Generic Social History Tobacco Use [...] on filedocumented in this encounter Care Teams Blueprint Maker Relationship Specialty Start Date End Date Dodie Rodriguez MD [address] [place] [address] PCP - General Internal Medicine 03/16/17 Dodie Rodriguez MD 100 [facility] [address] [place] [address] PCP - [place] Commercial Attributed 11/25/19 04/25/23 Li Limon MD [address] [place] [address] Referring Provider Neurology 02/19/25 documented as of this encounter
--- OUTSIDE RECORDS SUMMARY | 2025-03-07 18:58 | XMS_ITS | Encounter Summary ---
Author Organization [facility] Address [address] [place] [address] Phone Care Team Providers Care Baseball Scout Name Role Phone Dodie Rodriguez MD Primary Care Provider Encounter Details Date Type Department Care Team (Late st Contact Info) Description 10/16/2021 Telephone [facility] [address] [place] [address] Yuan Limon MD Social History [...] for gettingthe vaccine. Please advise Thank you [phone] documented in this encounter Plan of Treatment Not on file documented as of this encounter Visit Diagnoses Not on filedocumented in this encounter Care Teams Baseball Scout Relationship Specialty Start Date End Date Dodie Rodriguez MD [address] [place] [address] PCP - General Internal Medicine 09/02/21 documented as of this encounter
--- OUTSIDE RECORDS SUMMARY | 2025-03-07 18:58 | XMS_ITS | Encounter Summary ---
Author Organization [facility] Address [address] [place] [address] Care Team Providers Care Greenbelt Name Role Phone Dodie Rodriguez MD Primary Care Provider + [phone] Dodie Rodriguez MD Unavailable [phone] Li Limon MD Unavailable [phone] Encounter Details Date Type Department Care Team (Late st Contact Info) Description 10/04/2018 Scanned Document [address] [place] [address] Provider, Generic Social History Tobacco [...] on filedocumented in this encounter Care Teams [place] Relationship Specialty Start Date End Date Dodie Rodriguez MD [address] [place] [address] PCP - General Internal Medicine 03/16/17 Dodie Rodriguez MD 100 [facility] [address] [place] [address] PCP - [place] Commercial Attributed 11/25/19 04/25/23 Li Limon MD [address] [place] [address] Referring Provider Neurology 02/19/25 documented as of this encounter
--- OUTSIDE RECORDS SUMMARY | 2025-03-07 18:58 | XMS_ITS | Encounter Summary ---
Author Organization [facility] Address [address] [place] [address] Care Team Providers Care Poultry Veterinarian Name Role Phone Dodie Rodriguez MD Primary Care Provider + [phone] Dodie Rodriguez MD Unavailable [phone] Li Limon MD Unavailable [phone] Encounter Details Date Type Department Care Team (Late st Contact Info) Description 02/08/2018 Scanned Document [address] [place] [phone] Provider, Generic Social History Tobacco Use Types [...] on filedocumented in this encounter Care Teams Poultry Veterinarian Relationship Specialty Start Date End Date Dodie Rodriguez MD [address] [place] [address] PCP - General Internal Medicine 03/16/17 Dodie Rodriguez MD 100 [facility] 101 [place] [address] PCP - [place] Commercial Attributed 11/25/19 04/25/23 Li Limon MD [address] [place] [address] Referring Provider Neurology 02/19/25 documented as of this encounter
--- OUTSIDE RECORDS SUMMARY | 2025-03-07 18:58 | XMS_ITS | Clinical Summary ---
Author Organization [facility] Address [address] [place] [address] Care Team Providers Care Dog Behaviorist Name Role Phone Unavailable Primary Care Provider [...] (1 - Tdap) 1982 Pneumococcal Vaccine: 50+ Ye ars (1 of 1 - PCV) 2013 Zoster Vaccines (1 of 2) 2013 Depression Screening 04/26/2024 COVID-19 Vaccine (1 - 2024-2 6 season) 2024 Influenza Vaccine (#1) 2024 RSV Immunization Adult Patie nts (1 - 1-dose 75+ series) 2038 HIB [...] to complete this topic RSV Immunization Patients Un aaron 20 months Aged Out No longer eligible b ased on patient's age to complete this topic Varicella Vaccines Aged Out No longer eligible based on patient's age to complete this topic
--- OUTSIDE RECORDS SUMMARY | 2025-03-07 18:58 | XMS_ITS | Encounter Summary ---
Author Organization [facility] Address [address] [place] [address] Care Team Providers Care Commercial Drone Software Developer Name Role Phone Dodie Rodriguez MD Primary Care Provider [phone]- [phone] Li Limon MD Unavailable [phone] Encounter Details Date Type Department Care Team (Late st Contact Info) Description 12/29/[address] [facility] [address] [facility] [address] [place] [address] Adeel Huizar MD [address] [facility] [address] [place] [address] Social History Tobacco Use Types Packs/Day Years [...] on filedocumented in this encounter Care Teams Commercial Drone Software Developer Relationship Specialty Start Date End Date Dodie Rodriguez MD [address] [place] [address] PCP - General Internal Medicine 03/16/17 Li Limon MD [address] [place] [address] Referring Provider Neurology 02/19/25 documented as of this encounter
--- OUTSIDE RECORDS SUMMARY | 2025-03-07 18:58 | XMS_ITS | Encounter Summary ---
Author Organization [facility] Address [address] [place] [address] Care Team Providers Care Chemical Unit Operator Name Role Phone Ha Mckeon MD Primary Care Provider +[phone] Dodie Rodriguez MD Primary Care Provider + [phone] Dodie Rodriguez MD Unavailable [phone] Li Limon MD Unavailable [phone] Encounter Details Date Type Department Care Team (Late st Contact Info) Description 11/19/2015 Scanned Document [address] [place] [phone] Provider, Generic Social History Tobacco Use Types [...] we manage his BP or does his lacing presser or does he have a rotogravure press operator. documented in this encounter Plan of Treatment Not on file documented as of this encounter Visit Diagnoses Not on filedocumented in this encounter Care Teams Chemical Unit Operator Relationship Specialty Start Date End Date Ha Mckeon MD PCP - General Internal Medicine 01/03/15 03/15/17 Dodie Rodriguez MD [address] [place] [address] PCP - General Internal Medicine 03/16/17 Dodie Rodriguez MD [address] [place] [address] PCP - [place] Commercial Attributed 11/25/19 04/25/23 Li Limon MD [address] [place] [address] Referring Provider Neurology 02/19/25 documented as of this encounter
--- OUTSIDE RECORDS SUMMARY | 2025-03-07 18:58 | XMS_ITS | Encounter Summary ---
Author Organization [facility] Address [address] [place] [address] Care Team Providers Care Cement Finishing Supervisor Name Role Phone Dodie Rodriguez MD Primary Care Provider + [phone] Dodie Rodriguez MD Unavailable [phone] Li Limon MD Unavailable [phone] Encounter Details Date Type Department Care Team (Late st Contact Info) Description 05/23/2019 Scanned Document [address] [place] [address] Provider, Generic Social History Tobacco [...] on filedocumented in this encounter Care Teams Cement Finishing Supervisor Relationship Specialty Start Date End Date Dodie Rodriguez MD [address] [place] [address] PCP - General Internal Medicine 03/16/17 Dodie Rodriguez MD 100 [facility] 101 [place] [address] PCP - [place] Commercial Attributed 11/25/19 04/25/23 Li Limon MD [address] [place] [address] Referring Provider Neurology 02/19/25 documented as of this encounter
--- OUTSIDE RECORDS SUMMARY | 2025-03-07 18:58 | XMS_ITS | Encounter Summary ---
Author Organization [facility] Address [address] [place] [address] Care Team Providers Care Hospital Librarian Name Role Phone Dodie Rodriguez MD Primary Care Provider + [phone] Dodie Rodriguez MD Unavailable [phone] Li Limon MD Unavailable [phone] Encounter Details Date Type Department Care Team (Late st Contact Info) Description 06/22/2017 Scanned Document [address] [place] [address] Provider, Generic Social History Tobacco [...] on filedocumented in this encounter Care Teams Hospital Librarian Relationship Specialty Start Date End Date Dodie Rodriguez MD [address] [place] [address] PCP - General Internal Medicine 03/16/17 Dodie Rodriguez MD 100 [facility] 101 [place] [address] PCP - [place] Commercial Attributed 11/25/19 04/25/23 Li Limon MD [address] [place] [address] Referring Provider Neurology 02/19/25 documented as of this encounter
--- OUTSIDE RECORDS SUMMARY | 2025-03-07 18:58 | XMS_ITS | Encounter Summary ---
Author Organization [facility] Address [address] [place] [address] Care Team Providers Care Catering Barista Name Role Phone Dodie Rodriguez MD Primary Care Provider +1- [phone] Li Limon MD Unavailable [phone] Encounter Details Date Type Department Care Team (Late st Contact Info) Description 10/26/2023 Scanned Document [facility] [address] [place] [address] Ophthalmology, Scan Social History Tobacco Use Types [...] on filedocumented in this encounter Care Teams Catering Barista Relationship Specialty Start Date End Date Dodie Rodriguez MD [address] [place] [address] PCP - General Internal Medicine 03/16/17 Li Limon MD [address] [place] [address] Referring Provider Neurology 02/19/25 documented as of this encounter
--- OUTSIDE RECORDS SUMMARY | 2025-03-07 18:58 | XMS_ITS | Encounter Summary ---
Author Organization [facility] Address [address] [place] [address] Phone Care Team Providers Care Postdoctoral Research Fellow Name Role Phone Dodie Rodriguez MD Primary Care Provider [phone] Encounter Details Date Type Department Care Team (Late st Contact Info) Description 07/17/2020 Orders Only [facility] [address] [place] [address] Provider, MD [place] Social History Tobacco Use Types Packs/Day Years [...] encounter Results * EXT RESULT ENTRY (07/17/2020) us Historical Provider LAB BLOOD ORDERABLES Evita l Result documented in this encounter Visit Diagnoses Not on filedocumented in this encounter Care Teams Postdoctoral Research Fellow Relationship Specialty Start Date End Date Dodie Rodriguez MD [address] [place] [address] PCP - General Internal Medicine 09/02/21 documented as of this encounter
--- OUTSIDE RECORDS SUMMARY | 2025-03-07 18:58 | XMS_ITS | Encounter Summary ---
Author Organization [facility] Address [address] [place] [address] Care Team Providers Care Experience Design Director Name Role Phone Dodie Rodriguez MD Primary Care Provider +[phone]- [phone] Dodie Rodriguez MD Unavailable [phone] Li Limon MD Unavailable [phone] Encounter Details Date Type Department Care Team (Late st Contact Info) Description 09/17/2021 Scanned Document [facility] PRIMARY [facility]ARE SCAN Dodie Rodriguez MD [address] [place], [place] [phone] Social History Tobacco Use Types Packs/Day Years [...] on filedocumented in this encounter Care Teams Experience Design Director Relationship Specialty Start Date End Date Dodie Rodriguez MD [address] [place] [address] PCP - General Internal Medicine 03/16/17 Dodie Rodriguez MD [address] [place] [address] PCP - [place] Commercial Attributed 11/25/19 04/25/23 Li Limon MD [address] [place] [address] Referring Provider Neurology 02/19/25 documented as of this encounter
--- OUTSIDE RECORDS SUMMARY | 2025-03-07 18:58 | XMS_ITS | Encounter Summary ---
Author Organization [facility] Address [address] [place] [address] Care Team Providers Care Teller Vault Name Role Phone Dodie Rodriguez MD Primary Care Provider +[phone]- [phone] Dodie Rodriguez MD Unavailable [phone] Li Limon MD Unavailable [phone] Encounter Details Date Type Department Care Team (Late st Contact Info) Description 09/25/2022 Scanned Document [facility] OPTHALMOLOGY SCAN Ophthalmology, Scan Social History Tobacco [...] Recorded In the last 10 days, have tyler u been in contact with someone who was confirmed or suspected to have Coronavirus/COVID-19? No / Unsure 09/15/2022 11:07 AM EDT documented as of this encounter Plan of Treatment Not on file documented as of this encounter Visit Diagnoses Not on filedocumented in this encounter Care Teams Teller Vault Relationship Specialty Start Date End Date Dodie Rodriguez MD [address] [place] [address] PCP - General Internal Medicine 03/16/17 Dodie Rodriguez MD [address] [place] [address] PCP - [place] Commercial Attributed 11/25/19 04/25/23 Li Limon MD [address] [place] [address] Referring Provider Neurology 02/19/25 documented as of this encounter
--- OUTSIDE RECORDS SUMMARY | 2025-03-07 18:58 | XMS_ITS | Encounter Summary ---
Author Organization [facility] Address [address] [place] [address] Care Team Providers Care Meat Lugger Name Role Phone Ha Mckeon MD Primary Care Provider +[phone] Dodie Rodriguez MD Primary Care Provider + [phone] Dodie Rodriguez MD Unavailable [phone] Li Limon MD Unavailable [phone] Encounter Details Date Type Department Care Team (Late st Contact Info) Description 01/21/2016 Scanned Document [address] [place] [phone] Provider, Generic Social History Tobacco Use Types [...] on filedocumented in this encounter Care Teams Meat Lugger Relationship Specialty Start Date End Date Ha Mckeon MD PCP - General Internal Medicine 01/03/15 03/15/17 Dodie Rodriguez MD [address] [place] [address] PCP - General Internal Medicine 03/16/17 Dodie Rodriguez MD [address] [place] [address] PCP - [place] Commercial Attributed 11/25/19 04/25/23 Li Limon MD [address] [place] [address] Referring Provider Neurology 02/19/25 documented as of this encounter
--- OUTSIDE RECORDS SUMMARY | 2025-03-07 18:58 | XMS_ITS | Clinical Summary ---
Author Organization [facility] Address [address] [place] [address] Phone Care Team Providers Care Engineering Design Supervisor Name Role Phone Dodie Rodriguez MD Primary Care Provider Allergies No known active allergies Medications spironolactone-h [...] Colorectal Cancer Screening: Sigmoidoscopy 2012 Influenza Vaccine (#1) 2024 2, 02/11/2021, 01/28/2020, Additional history exists Hepatitis B Vaccine Aged Out No longe r eligible based on patient's age to complete this topic [place] [address] [place] [address] [facility] Care Teams Engineering Design Supervisor Relationship Specialty Start Date End Date Dodie Rodriguez MD [address] [place] [phone] PCP - General Internal Medicine 09/02/21
--- OUTSIDE RECORDS SUMMARY | 2025-03-07 18:58 | XMS_ITS | Encounter Summary ---
Author Organization [facility] Address [address] [place] [address] Care Team Providers Care Metal Forger'S Assistant Name Role Phone Dodie Rodriguez MD Primary Care Provider +1- [phone] Dodie Rodriguez MD Unavailable [phone] Li Limon MD Unavailable [phone] Encounter Details Date Type Department Care Team (Late st Contact Info) Description 09/03/2021 Scanned Document [facility] PRIMARY CARE SCAN Dodie Rodriguez MD [address] [place], [place] [phone] Social History Tobacco Use Types Packs/Day Years [...] on filedocumented in this encounter Care Teams Metal Forger'S Assistant Relationship Specialty Start Date End Date Dodie Rodriguez MD [address] [place] [address] PCP - General Internal Medicine 03/16/17 Dodie Rodriguez MD [address] [place] [address] PCP - [place] Commercial Attributed 11/25/19 04/25/23 Li Limon MD [address] [place] [address] Referring Provider Neurology 02/19/25 documented as of this encounter
--- OUTSIDE RECORDS SUMMARY | 2025-03-07 18:58 | XMS_ITS | Encounter Summary ---
Author Organization [facility] Address [address] [place] [address] Care Team Providers Care Packaging Clerk Name Role Phone Dodie Rodriguez MD Primary Care Provider + [phone] Dodie Rodriguez MD Unavailable [phone] Li Limon MD Unavailable [phone] Encounter Details Date Type Department Care Team (Late st Contact Info) Description 08/30/2017 Scanned Document [address] [place] [phone] Provider, Generic Social History Tobacco Use Types [...] on filedocumented in this encounter Care Teams Packaging Clerk Relationship Specialty Start Date End Date Dodie Rodriguez MD [address] [place] [address] PCP - General Internal Medicine 03/16/17 Dodie Rodriguez MD 100 [facility] [address] [place] [address] PCP - [place] Commercial Attributed 11/25/19 04/25/23 Li Limon MD [address] [place] [address] Referring Provider Neurology 02/19/25 documented as of this encounter
--- OUTSIDE RECORDS SUMMARY | 2025-03-07 18:58 | XMS_ITS | Encounter Summary ---
Author Organization [facility] Address [address] [place] [address] Phone Care Team Providers Care Sign Maker Name Role Phone Dodie Rodriguez MD Primary Care Provider Encounter Details Date Type Department Care Team (Late st Contact Info) Description 06/18/2021 Telephone [facility] [address] [place] [address] Yuan Limon MD Social History [...] not elaborate. Please call him back at [phone]. Thank you documented in this encounter Plan of Treatment Not on file documented as of this encounter Visit Diagnoses Not on filedocumented in this encounter Care Teams Sign Maker Relationship Specialty Start Date End Date Dodie Rodriguez MD [address] [place] [id number] PCP - General Internal Medicine 09/02/21 documented as of this encounter
--- OUTSIDE RECORDS SUMMARY | 2025-03-07 18:58 | XMS_ITS | Encounter Summary ---
Author Organization [facility] Address [address] [place] [address] Care Team Providers Care Commercial Crabber Name Role Phone Dodie Rodriguez MD Primary Care Provider +1- [phone] Dodie Rodriguez MD Unavailable [phone] Li Limon MD Unavailable [phone] Encounter Details Date Type Department Care Team (Late st Contact Info) Description 04/03/2022 Scanned Document [facility] PRIMARY CARE SCAN Dodie Rodriguez MD [address] [place], [place] [id number] Social History Tobacco Use Types Packs/Day Years [...] filedocumented in this encounter Care Teams Commercial Crabber Relationship Specialty Start Date End Date Dodie Rodriguez MD [address] [place] [address] PCP - General Internal Medicine 03/16/17 Dodie Rodriguez MD [address] [place] [address] PCP - [place] Commercial Attributed 11/25/19 04/25/23 Li Limon MD [address] [place] [address] Referring Provider Neurology 02/19/25 documented as of this encounter
--- OUTSIDE RECORDS SUMMARY | 2025-03-07 18:58 | XMS_ITS | Clinical Summary ---
Author Organization [facility] Address [address] [place] [address] Care Team Providers Care Railway Station Manager Name Role Phone Unavailable Primary Care Provider [...] or Tdap) 05/11/2021 05/11/2011 Influenza Vaccine (#1) 2024 9, 02/03/2016, 03/09/2012, Additional history exists RSV [...]
--- OUTSIDE RECORDS SUMMARY | 2025-03-07 18:58 | XMS_ITS | Encounter Summary ---
Author Organization [facility] Address [address] [place] [address] Care Team Providers Care Rip And Groove Machine Operator Name Role Phone Dodie Rodriguez MD Primary Care Provider +[phone]- [phone] Dodie Rodriguez MD Unavailable [phone] Li Limon MD Unavailable [phone] Encounter Details Date Type Department Care Team (Late st Contact Info) Description 04/17/2017 Scanned Document [address] [place] [phone] Provider, Generic Social History Tobacco Use [...] Procedure Name Priority Date/Time Associated Diagnosis Comments LAB RESULT 04/17/2017 documented in this encounter Results * LAB RESULT (04/17/2017) Narrative 04/17/2017 Ordered by an unspecified provider. us Generic Provider HX AMB PROCEDURES Edited Result - Final documented in this encounter Visit Diagnoses Not on filedocumented in this encounter Care Teams Rip And Groove Machine Operator Relationship Specialty Start Date End Date Dodie Rodriguez MD [address] [place] [address] PCP - General Internal Medicine 03/16/17 Dodie Rodriguez MD [address] [place] [address] PCP - [place] [employer] Attributed 11/25/19 04/25/23 Li Limon MD [address] [place] [address] Referring Provider Neurology 02/19/25 documented as of this encounter
--- OUTSIDE RECORDS SUMMARY | 2025-03-07 18:58 | XMS_ITS | Clinical Summary ---
Author Organization [facility] Address [address] [place] [address] Care Team Providers Care Central Office Equipment Installer Name Role Phone Dodie Rodriguez MD Primary Care Provider [phone]- [phone] Li Limon MD Unavailable [phone] Allergies No known active allergies Medications amLODIPine (NORVASC) 10 MG tablet 1 tablet (10 mg total). 1/2 tabet qhs Active labetalol (NORMODYNE) 200 MG tablet Take 1 tablet (200 mg total) by mouth 2 (two) times a day. 1 6 Active spironolactone-hydr ochlorothiazide (ALDACTAZIDE) 25-25 MG per tablet Take 1 tablet by mouth daily. 1 6 Active rosuvastatin (CRESTOR) 10 MG tabletIndications:H yperlipidemia, unspecified hyperlipidemia type Take 1 tablet (10 mg total) by mouth daily. 90 tablet 3 5 12/01/19 26 Active Active Problems Problem Noted Date Diagnosed [...] Encounters Date Type Department Care Team Description 02/23/2025 12:00 PM EDT Office Visit UROLOGY ENH[facility] [address] [facility] [address] [place] [phone] Keyshawn Wetzel MD Prostate cancer (HCC) (Primary Dx) 02/23/2025 Travel 12/05/2024 9:00 AM EDT Office Visit [address] [place] [address] Dodie Rodriguez MD Prostate cancer (HCC) (Primary Dx); Hyperlipidemia, unspecified hyperlipidemia type ; Essential hypertension ; Stage 3 chronic kidney disease, unspecified whether stage 3a or 3b CKD (HCC); Need for vaccination for Strep pneumoniae 12/05/2024 Travel from Last 3 Months Immunizations Immunization Administration Dates Next Due Influenza (AFLURIA/FLUZONE) Inactivated/Split Quadrivalent with Preservative IM 04/27/2011,01/31/2010,02/21/2009 Influenza Inactivated/Split Preservative Free IM 02/09/2019,02/03/2016,03/09/2012 Influenza, Quadrivalent (FLU ARIX, AFLURIA, FLULAVAL, FLUZONE) Preservative Free IM 02/12/2022 Influenza, Quadrivalent (FLU CELVAX) MDCK, Preservative Free IM 02/21/2023,02/11/2021,01/28/2020 Influenza, Trivalent (FLUARI X, AFLURIA, FLULAVAL, FLUZONE) Preservative Free IM 02/05/2024 Influenza, Unspecified 02/11/2021,01/28/2020, Pneumococcal Conjugate 21-Valent 12/05/2024 Tdap 12/01/2022,05/11/2011 Zoster Vaccine Recombinant (Shingrix) 12/18/2022 [...] Sign Reading Time Taken Comments Blood Pressure 130/64 12/05/2024 9:07 AM EDT Pulse 84 12/05/2024 9:07 AM EDT Temperature 36.4 C (97.6 F) 12/05/2024 9:07 AM EDT Respiratory Rate 16 12/05/2024 9:07 AM EDT Oxygen Saturation 98% 12/05/2024 9:07 AM EDT Inhaled Oxygen Concentration - - Weight 97.9 kg (215 lb 12.8 oz) 12/05/2024 9:07 AM EDT Height 172.7 cm (5' 7.99 ) 12/05/2024 9:07 AM ED T Body Mass Index 32.82 12/05/2024 9:07 AM EDT Plan of Treatment Health Maintenance Due Date Last Done Comments RSV Vaccine 50 years and older and Patients (1 - Risk 50-74 years 1-dose series) 2013 Physical 06/05/2025 06/05/2024, 0811/2022, 08/08/2021, Additional history exists Colonoscopy 12/28/2026 12/29/2023, 06/14/2017 DTaP/Tdap/Td Vaccines (3 - Td or Tdap) 12/01/2032 12/01/2022, 05/11/2011 Zoster (Shingles) Vaccine Completed 12/18/2022, HIV Screening Completed 01/29/2023 Hepatitis C Virus Screening Completed 01/29/2023 Pneumococcal Vaccines 50+ Completed 12/05/2024 Influenza Vaccine Completed 01/28/2025, , 02/21/2023, Additional history exists COVID-19 Vaccine Completed 02/18/2025, 11/2023, 02/01/2023, Additional history exists Hepatitis B Vaccines Aged Out No long er eligible based on patient's age to complete this topic Procedures Procedure Name Priority Date/Time Associated Diagnosis Comments POCT URINALYSIS DIPSTICK, AUTOMATED Routine 02/23/2025 12:14 PM EDT Prostate cancer (HCC) PSA Routine 02/15/2025 8:14 AM EDT Prostate cancer (HCC) HEMOGLOBIN A1C Routine 02/15/2025 8:12 AM EDT COMPREHENSIVE METABOLIC PANEL Routine 02/15/2025 8:12 AM EDT Hyperlipidemia, unspecified hyperlipidemia type LIPID PANEL REFLEX DIRECT LDL Routine 02/15/2025 8:12 AM EDT Hyperlipidemia, unspecified hyperlipidemia type HIV 1/2 AG/AB CMIA REFLEX TO CONFIRMATION Routine 01/29/2023 10:06 AM EDT Annual physical exam HEPATITIS C VIRUS (HCV) ANTIBODY Routine 01/29/2023 10:06 AM EDT Annual physical exam HX GASTROENTEROLOGY COLONOSCOPY-SCAN 06/14/2017 from Last 3 Months or Most Recently Relevant to Health Maintenance Results * POCT Urinalysis Dipstick, Automated (02/23/2025 12:14 PM EDT) Source, UA Voided Color, UA Yellow Yellow & Clear, Yellow Clarity, UA Clear Clear Glucose, UA Negative Negative Bilirubin, UA Negative Negative Ketones, UA Negative Negative Spec Grav, UA 1.015 1.005, 1.010, 1.015, 1.020, 1.025 Blood, UA Negative Negative pH, UA 6.5 5.0, 5.5, 6.0, 6.5, 7.0, 7.5, 8.0 Protein, UA Negative Negative Urobilinogen, UA 0.2 0.2, 1.0 Nitrite, UA Negative Negative Leukocyte Esterase, UA Negative Negative Lot Number [id number] Certified Professional Controller Pass Pass Urine 02/23/2025 12:1 4 PM EDT Keyshawn Wetzel MD POINT OF CARE TEST ORDERABLES Final Result * (ABNORMAL) PSA (02/15/2025 8:14 AM EDT) PSA, Total 10.44(H) < OR = 4.00 ng/mL [facility] Comment: The total PSA value from this assay system is standardized against the WHO standard. The test result will be approximately 20% lower when compared to the equimolar-standardized total PSA (Jennifer Rochester). Comparison of serial PSA results should be interpreted with this fact in mind. This test was performed using the Siemens chemiluminescent method. Values obtained from different assay methods cannot be used interchangeably. PSA levels, regardless of value, should not be interpreted as absolute evidence of the presence or absence of disease. Blood Blood specimen / Unknown 02/15/2025 8:14 AM EDT 02/15/2025 8:14 AM EDT Keyshawn Wetzel MD LAB BLOOD ORDERABLES Final Res ult [facility] [address] [place] [phone] * (ABNORMAL) Lipid Panel Reflex Direct LDL (02/15/2025 8:12 AM EDT) Cholesterol, Total 134 <200 mg/dL [facility] Cholesterol, HDL 43 > OR = 40 mg/dL [facility] Triglycerides 153(H) <150 mg/dL [facility] LDL Cholesterol 67 mg/dL (calc) [facility] Comment: Reference range: <100 Desirable range <100 mg/dL for primary prevention; <70 mg/dL for patients with CHD or diabetic patients with > or = 2 CHD risk factors. LDL-C is now calculated using the Dani calculation, which is a validated novel method providing better accuracy than the Friedewald equation in the estimation of LDL-C. Rei LOPEZ et al. JUAN. 2013;310(19): 7115-6660 (http://education.ididwork/faq/VXU249) Cholesterol/HDL Ratio 3.1 <5.0 (calc) [facility] Non HDL Chol. (LDL+VLDL) 91 <130 mg/dL (calc) [facility] Comment: For patients with diabetes plus 1 major ASCVD risk factor, treating to a non-HDL-C goal of <100 mg/dL (LDL-C of <70 mg/dL) is considered a therapeutic option. Blood Blood specimen / Unknown 02/15/2025 8:12 AM EDT 02/15/2025 8:13 AM EDT [facility] - 02/19/2025 1:20 PM EDT FASTING:YES FASTING: YES Dodie Rodriguez MD LAB BLOOD ORDERABLES Final Result Performing Organization Address [facility] Co de Phone Number [facility] [address] [place] [phone] * Hemoglobin A1C (02/15/2025 8:12 AM EDT) Hemoglobin A1C TNP % [facility] Comment: TEST NOT PERFORMED The specimen type required for the add-on test was not originally collected. 02/15/2025 8:12 AM EDT 02/15/2025 8:13 AM EDT [facility] - 02/19/2025 1:20 PM EDT FASTING:YES FASTING: YES us Dodie Rodriguez MD LAB BLOOD ORDERABLES Final Result Performing Organization Address City/[facility]/ZIP Co de Phone Number [facility] [address] [place] [phone] * (ABNORMAL) Comprehensive Metabolic Panel (02/15/2025 8:12 AM EDT) Glucose 114(H) 65 - 99 mg/dL [facility] Comment: Fasting reference interval For someone without known diabetes, a glucose value between 100 and 125 mg/dL is consistent with prediabetes and should be confirmed with a follow-up test. Blood Urea Nitrogen (BUN) 25 7 - 25 mg/dL [facility] Creatinine 1.56(H) 0.70 - 1.35 mg/dL [facility] Creatinine w/ eGFR 50(L) > OR = 60 mL/min/1. 73m2 [facility] BUN/Creatinine Ratio 16 6 - 22 (calc) [facility] Sodium 138 135 - 146 mmol/L [facility] Potassium 4.4 3.5 - 5.3 mmol/L [facility] Chloride 101 98 - 110 mmol/L [facility] CO2 31 20 - 32 mmol/L [facility] Calcium 10.0 8.6 - 10.3 mg/dL [facility] Protein, Total 7.4 6.1 - 8.1 g/dL [facility] Albumin 4.6 3.6 - 5.1 g/dL [facility] Globulin 2.8 1.9 - 3.7 g/dL (calc) [facility] Albumin/Globulin Ratio 1.6 1.0 - 2.5 (calc) [facility] Bilirubin, Total 0.5 0.2 - 1.2 mg/dL [facility] Alkaline Phosphatase 58 35 - 144 U/L [facility] Aspartate Aminotrans (AST) 23 10 - 35 U/L [facility] Alanine Aminotrans (ALT) 26 9 - 46 U/L [facility] Blood Blood specimen / Unknown 02/15/2025 8:12 AM EDT 02/15/2025 8:13 AM EDT Narrative [facility] - 02/19/2025 1:20 PM EDT FASTING:YES FASTING: YES Dodie Rodriguez MD LAB BLOOD ORDERABLES Final Result Performing Organization Address [facility] de Phone Number [facility] [address] [place] [phone] * HIV 1/2 Ag/Ab CMIA Reflex to Confirmation (01/29/2023 10:06 AM EDT) HIV Ag/Ab, 4th Gen NON-REACT LETICIA NON-REACT [facility] Comment: HIV-1 antigen and HIV-1/HIV-2 antibodies were not detected. There is no laboratory evidence of HIV infection. PLEASE NOTE: This information has been disclosed to you from records whose confidentiality may be protected by state law. If your state requires such protection, then the state law prohibits you from making any further disclosure of the information without the specific written consent of the person to whom it pertains, or as otherwise permitted by law. A general authorization for the release of medical or other information is NOT sufficient for this purpose. For additional information please refer to http://education.Snapcious.Preview Networks/faq/OBX996 (This link is being provided for informational/ educational purposes only.) The performance of this assay has not been clinically validated in patients less than 2 years old. Blood specimen (specimen) 01/29/2023 10:06 AM EDT 01/29/2023 10:09 AM EDT [facility] - 01/30/2023 1:18 AM EDT FASTING:YES FASTING: YES Dodie Rodriguez MD LAB BLOOD ORDERABLES Final Result Performing Organization Address [facility] Co de Phone Number [facility] [address] [place] [phone] * HEPATITIS C VIRUS (HCV) ANTIBODY (01/29/2023 10:06 AM EDT) Hepatitis C Antibody NON-REACT LETICIA NON-REACT LETICIA [facility] Comment: HCV antibody was non-reactive. There is no laboratory evidence of HCV infection. In most cases, no further action is required. However, if recent HCV exposure is suspected, a test for HCV RNA (test code 44911) is suggested. For additional information please refer to http://education.Grafighters/faq/CYY04e8 (This link is being provided for informational/ educational purposes only.) Blood specimen (specimen) 01/29/2023 10:06 AM EDT 01/29/2023 10:09 AM EDT Narrative [facility] - 01/30/2023 1:18 AM EDT FASTING:YES FASTING: YES Dodie Rodriguez MD LAB BLOOD ORDERABLES Final Result [facility] [address] [place] [phone] * HX GASTROENTEROLOGY COLONOSCOPY-SCAN (06/14/2017) Narrative 06/14/2017 Ordered by an unspecified provider. Generic Provider HX AMB PROCEDURES Edited Result - Final from Last 3 Months or Most Recently Relevant to Health Maintenance [facility] Care Teams Central Office Equipment Installer Relationship Specialty Start Date End Date Dodie Rodriguez MD [address] [place] [phone] PCP - General Internal Medicine 03/16/17 Li Limon MD [address] [place] [address] Referring Provider Neurology 02/19/25
--- OUTSIDE RECORDS SUMMARY | 2025-03-07 18:58 | XMS_ITS | Encounter Summary ---
Author Organization [facility] Address [address] [place] [address] Care Team Providers Care Monument Letterer Name Role Phone Ha Mckeon MD Primary Care Provider [phone] Dodie Rodriguez MD Primary Care Provider + [phone] Dodie Rodriguez MD Unavailable [phone] Li Limon MD Unavailable [phone] Encounter Details Date Type Department Care Team (Late st Contact Info) Description 11/17/2016 Scanned Document [address] [phone] Provider, Generic Social History Tobacco Use Types [...] on filedocumented in this encounter Care Teams Monument Letterer Relationship Specialty Start Date End Date Ha Mckeon MD PCP - General Internal Medicine 01/03/15 03/15/17 Dodie Rodriguez MD [address] [place] [address] PCP - General Internal Medicine 03/16/17 Dodie Rodriguez MD [address] [place] [address] PCP - [place] Commercial Attributed 11/25/19 04/25/23 Li Limon MD [address] [place] [address] Referring Provider Neurology 02/19/25 documented as of this encounter
--- OUTSIDE RECORDS SUMMARY | 2025-03-07 18:58 | XMS_ITS | Encounter Summary ---
Author Organization [facility] Address [address] [place] [address] Care Team Providers Care Line Tester Name Role Phone Dodie Rodriguez MD Primary Care Provider + [phone] Dodie Rodriguez MD Unavailable [phone] Li Limon MD Unavailable [phone] Encounter Details Date Type Department Care Team (Late st Contact Info) Description 11/22/2017 Scanned Document [address] [place] [address] Provider, Generic Social History Tobacco [...] on filedocumented in this encounter Care Teams Line Tester Relationship Specialty Start Date End Date Dodie Rodriguez MD [address] [place] [address] PCP - General Internal Medicine 03/16/17 Dodie Rodriguez MD [address] [facility] [address] [place] [address] PCP - [place] Commercial Attributed 11/25/19 04/25/23 Li Limon MD [address] [place] [address] Referring Provider Neurology 02/19/25 documented as of this encounter
--- OUTSIDE RECORDS SUMMARY | 2025-03-07 18:58 | XMS_ITS | Encounter Summary ---
Author Organization [facility] Address [address] [place] [address] Care Team Providers Care Rat Poisoner Name Role Phone Ha Mckeon MD Primary Care Provider [phone] Dodie Rodriguez MD Primary Care Provider + [phone] Dodie Rodriguez MD Unavailable [phone] Li Limon MD Unavailable [phone] Encounter Details Date Type Department Care Team (Late st Contact Info) Description 05/12/2016 Scanned Document [address] [phone] Provider, Generic Social History Tobacco Use Types [...] on filedocumented in this encounter Care Teams Rat Poisoner Relationship Specialty Start Date End Date Ha Mckeon MD PCP - General Internal Medicine 01/03/15 03/15/17 Dodie Rodriguez MD [address] [place] [address] PCP - General Internal Medicine 03/16/17 Dodie Rodriguez MD [address] [place] [address] PCP - [place] Commercial Attributed 11/25/19 04/25/23 Li Limon MD [address] [place] [address] Referring Provider Neurology 02/19/25 documented as of this encounter
--- OUTSIDE RECORDS SUMMARY | 2025-03-07 18:58 | XMS_ITS | Encounter Summary ---
Author Organization [facility] Address [address] [place] [address] Care Team Providers Care Compound Coating Machine Offbearer Name Role Phone MikeHa MD Primary Care Provider [phone] Dodie Rodriguez MD Primary Care Provider + [phone] Dodie Rodriguez MD Unavailable [phone] Li Limon MD Unavailable [phone] Encounter Details Date Type Department Care Team (Late st Contact Info) Description 08/06/2015 Scanned Document [address] [place] [phone] Provider, Generic Social History Tobacco Use Types [...] on filedocumented in this encounter Care Teams Compound Coating Machine Offbearer Relationship Specialty Start Date End Date Ha Mckeon MD PCP - General Internal Medicine 01/03/15 03/15/17 Dodie Rodriguez MD [address] [place] [address] PCP - General Internal Medicine 03/16/17 Dodie Rodriguez MD [address] [place] [address] PCP - [place] Commercial Attributed 11/25/19 04/25/23 Li Limon MD [address] [place] [address] Referring Provider Neurology 02/19/25 documented as of this encounter
== END 2025-03-07 16:22 | disposition home or self-care (01) ==
LOC: HO.HKAE 16:08
PROVIDERS: PCP Internal Medicine; Visit Provider Internal Medicine Hypertension Specialist
DX: I10 Essential (primary) hypertension (principal)
CPT/HCPCS: 99214